=== PATIENT | female | born 1955 | race Caucasian/White ===

== ENCOUNTER → 2020-04-25 15:24 | Outpatient (BNVA) | payer MEDICARE, SELFPAY | PROVIDERS: PCP Family Medicine; Visit Provider Internal Medicine | DX: D86.9 Sarcoidosis, unspecified (principal); M32.9 Systemic lupus erythematosus, unspecified; L40.9 Psoriasis, unspecified; M81.0 Age-related osteoporosis without current pathological fracture; G89.29 Other chronic pain; F41.9 Anxiety disorder, unspecified; K51.90 Ulcerative colitis, unspecified, without complications | CPT/HCPCS: 99203; 99204 ==

== ENCOUNTER 2020-05-09 11:25 | Outpatient (CLI) | payer MEDICARE, OTHER, MEDICAID, SELFPAY ==
--- NOTE | 2020-05-09 11:42 | XR_ITS ---
WS: [id number] TECHNIQUE: 2 views of the right hand CLINICAL INFORMATION: K51.90 - Ulcerative colitis, unspecified, without complications COMPARISON: None. FINDINGS: Normal metacarpals. Normal MCP joint. Metacarpal heads are normal in appearance. Normal PIP and DIP j oints. No evidence of acute fracture or dislocation. Ulna minus variance. Chondrocalcinosis TFCC. Radiocarpal joint: Mild narrowing Carpal bones: Mild degenerative arthritis first CMC. XR/XR hand RT 2V [id number] IMPRESSION: 1. No erosive changes. 2. Ulna minus variance with chondrocalcinosis of the TFCC.
--- NOTE | 2020-05-09 11:42 | XR_ITS ---
WS: [id number] TECHNIQUE: 2 views of the left hand CLINICAL INFORMATION: K51.90 - Ulcerative colitis, unspecified, without complications COMPARISON: None. FINDINGS: Normal metacarpals. Normal MCP joint. Metacarpal heads are normal in appearance. Normal PIP and DIP j oints. No evidence of acute fracture or dislocation. Chondrocalcinosis TFCC. Radiocarpal joint: Mild narrowing. Carpal bones: Mild degenerative arthritis the first CMC. XR/XR hand LT 2V [id number] IMPRESSION: No erosive changes.
--- NOTE | 2020-05-09 11:42 | XR_ITS ---
WS: [id number] SI JOINTS TECHNIQUE: 3 views of the sacroiliac joints CLINICAL INFORMATION: L40.9 - Psoriasis, unspecified COMPARISON: None. FINDINGS: Osteopenia. Mild degenerative arthritis both sacroiliac joints with mild sclerosis. No significant er osive changes. Surgical sutures in the pelvis. 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 No eros rocael changes.
== END 2020-05-09 11:26 | disposition home or self-care (01) ==
LOC: RADWPI 11:41
PROVIDERS: PCP Family Medicine; Visit Provider Internal Medicine
DX: L40.9 Psoriasis, unspecified (principal); K51.90 Ulcerative colitis, unspecified, without complications; M21.831 Other specified acquired deformities of right forearm; M11.241 Other chondrocalcinosis, right hand; M46.1 Sacroiliitis, not elsewhere classified; M54.2 Cervicalgia; M54.9 Dorsalgia, unspecified
CPT/HCPCS: 72202; 73120; 99203; G0463

== ENCOUNTER → 2020-06-13 12:35 | Outpatient (BNVA) | payer MEDICARE, OTHER, MEDICAID, SELFPAY | PROVIDERS: PCP Family Medicine; Visit Provider Internal Medicine | DX: D86.9 Sarcoidosis, unspecified (principal); K51.90 Ulcerative colitis, unspecified, without complications; M53.3 Sacrococcygeal disorders, not elsewhere classified; G89.29 Other chronic pain; Z79.899 Other long term (current) drug therapy | CPT/HCPCS: 99213 ==

== ENCOUNTER 2020-11-26 13:43 | Outpatient (CLI) | payer MEDICARE, OTHER, MEDICAID, SELFPAY ==
[2020-11-26 14:15] LABS: Basophils # 0.1 10^3/uL (0.0-0.1); Basophils % 0.8 %; Eosinophils # 0.1 10^3/uL (0.0-0.8); Eosinophils % 0.6 %; Hemoglobin 10.9 g/dL (11.5-15.3); Lymphocytes # 2.1 10^3/uL (0.8-4.8); Lymphocytes % 11.6 %; Mean Corpuscular HGB Conc 31.1 g/dL (30.0-36.0); Mean Corpuscular Hemoglobin 25.7 pg (28.0-34.0); Mean Corpuscular Volume 82.5 fL (81-99); Monocytes # 0.7 10^3/uL (0.2-0.9); Neutrophils # 14.56 10^3/uL (1.8-7.7); Neutrophils % 81.9 %; Nucleated Red Blood Cells % 0 %; Platelet Count 345 10^3/cmm (130-400); Red Blood Count 4.24 10^6/uL (4.1-5.3); Red Cell Distribution Width 15.9 % (12.1-15.1); White Blood Count 17.8 10^3/uL (4.0-10.0)
[2020-11-26 14:51] LABS: Alanine Aminotransferase 15 U/L (0-33); Albumin Level 3.8 g/dL (3.5-5.2); Alkaline Phosphatase 62 IU/L (35-105); Anion Gap 19.2 (5-19); Aspartate Amino Transferase 21 U/L (0-32); Blood Urea Nitrogen 23 mg/dL (8-23); C Reactive Protein 92.2 mg/L (0.0-4.9); Calcium 8.8 mg/dL (8.5-10.5); Carbon Dioxide 17 mmol/L (22-29); Chloride 103 mmol/L (98-107); Glomerular Filtration Rate 83.5 mL/min (90-130); Glucose 116 mg/dL (65-115); Osmolality Calculated 285 mOsm/kg (285-295); Potassium 4.2 mmol/L (3.5-5.1); Sodium 135 mmol/L (136-145); Total Bilirubin 0.2 mg/dL (0.15-1.2); Total Protein 6.8 g/dL (6.6-8.7)
[2020-11-26 15:20] LABS: Erythrocyte Sedimentation Rate 40 mm/hr (0-15)
== END 2020-11-26 13:44 | disposition home or self-care (01) ==
PROVIDERS: PCP Family Medicine; Visit Provider Internal Medicine
DX: D86.9 Sarcoidosis, unspecified (principal); M81.0 Age-related osteoporosis without current pathological fracture; Z79.899 Other long term (current) drug therapy
CPT/HCPCS: 36415; 80053; 85025; 85651; 86140

== ENCOUNTER 2023-10-16 14:33 | Inpatient (IN) | payer MEDICARE, OTHER, MEDICAID, SELFPAY ==
[2023-10-16] VITALS (9 sets, daily range): BP systolic 105–131; BP diastolic 60–64; PULSE 84–91; RESP 14–17; TEMP 36.3–37.3; O2SAT 86–95; BMI 20.2
--- NOTE | 2023-10-16 14:43 | XR_ITS ---
WS: [id number] XR hip LT 2-3V wo/w pel* [id number] REASON FOR EXAM: fall, left hip pain. with pelvis FINDINGS: Mild changes of osteoarthritis in the left hip joint. No acute fracture of the left hip identified. There is a nondisplaced minimally comminuted fracture of the inferior pubic ramus.. There is nondisplaced minimally comminuted fracture of the superior pubic ramus. These fractures appear acute. XR/XR hip LT 2-3V wo/w pel* [id number] IMPRESSION: Acute fracture of the superior and inferior pubic rami. Acute fracture of the hip not identified.
--- NOTE | 2023-10-16 14:49 | W.ED.FALL ---
HPI - Fall General: Chief Complaint: Fall Stated Complaint: PELVIC FRACTURE Time Seen by Provider: 10/16/23 14:38 History of Present Illness: 67-year-old female who presents to the the emergency room by ambulance from [facility]. She tripped and fell yesterday and was having pain in her left hip. She was sent to the emergency room because an in-house x-ray showed possible pelvic fracture. She did not hit her head. No altered mental status. No focal motor deficits. No chest pain. She says she feels a little bit short of breath but this is not unusual. Review of Systems Narrative: Constitutional symptoms: Negative except as documented in HPI. Skin symptoms: Negative except as documented in HPI. Eye symptoms: Negative except as documented in HPI. ENMT symptoms: Negative except as documented in HPI. Respiratory symptoms: Negative except as documented in HPI. Cardiovascular symptoms: Negative except as documented in HPI. Gastrointestinal symptoms: Negative except as documented in HPI. Genitourinary symptoms: Negative except as documented in HPI. Musculoskeletal symptoms: Negative except as documented in HPI. Neurologic symptoms: Negative except as documented in HPI. Psychiatric symptoms: Negative except as documented in HPI. Endocrine symptoms: Negative except as documented in HPI. [facility] PFSH: Medical History Osteoporosis Sarcoidosis Social History Smoking and tobacco/nicotine status: never used tobacco/nicotine Alcohol intake: never Substance/Drug Use: never Lives independently: Yes Physical Exam Narrative: EXAM NARRATIVE: General: Alert, no acute distress. Skin: Warm, dry. Head: Normocephalic, atraumatic. Neck: Supple, trachea midline. Eye: Extraocular movements are intact. Ears, nose, mouth and throat: mucosa moist. Cardiovascular: Regular, Normal peripheral perfusion. Respiratory: Lungs are clear to auscultation, respirations are non-labored, breath sounds are equal, Symmetrical chest wall expansion. Gastrointestinal: Soft, Nontender, Non distended, Normal bowel sounds. Musculoskeletal: Pain with movement of her left leg in her left pelvic and hip area. No shortening or rotation. Neurovascularly intact. Left shoulder appears to be sitting superior to where it should. She cannot abduct. Neurological: Alert and oriented, No focal neurological deficit observed. Psychiatric: Cooperative, appropriate mood & affect. Course Vital Signs: Vital signs: Vital Signs Temperature 99.1 F 10/16/23 14:35 Pulse Rate 90 10/16/23 19:42 Respiratory Rate 16 10/16/23 19:42 Blood Pressure 131/64 10/16/23 19:42 Pulse Oximetry 92 10/16/23 19:42 Oxygen Delivery Me thod Nasal Cannula 10/16/23 19:42 Oxygen Flow Rate 2 10/16/23 19:42 MDM - Fall Medical Decision Making Medical decision making: Differential diagnosis including but not limited to and based on the above HPI, review of systems and physical exam: Concern for hip or pelvic fracture. X-ray was ordered. Patient reports no head injury so no CTs of her head were ordered. No confusion. No altered mental status. She says she tripped and fell so no workup for syncope or infection. Orders placed to evaluate differential diagnosis based on the above differential, HPI and physical exam X-ray of the left shoulder: Abnormal placement of the shoulder, likely rotator cuff. I reviewed and interpreted these films personally. I also reviewed the radiology report. X-ray of the left hip and pelvis: No hip fracture. She does have a superior and inferior pubic rami fractures. This was reviewed and interpreted by myself the emergency room physician. Also reviewed the radiology report CT head: No acute intracranial process. no intracranial hemorrhage, no evidence of infarct. no evidence of acute fracture.This was reviewed and interpreted by myself the ER physician. Consultation: I spoke with Dr. Still at 1440. He recommends a CT scan of the abdomen. Also at that time it is noted that the patient had an elevated temperature and soft blood pressure so I ordered some fluids and lab work. Including a urinalysis. CT was ordered. Patient does have an additional iliac fracture. I spoke with Dr. Gaston again about shoulder and he recommends toe-touch weightbearing of the left lower extremity, PT OT consultation, 325 aspirin twice daily, pain control, vitamin D and calcium. Also a CT of the left shoulder is being ordered. CT of the pelvis without contrast: Comminuted fractures of the left superior and inferior pubic rami. Comminuted fracture of the left iliac bone extending into the SI joint without SI joint widening. Nonspecific induration around the urinary bladder likely related to pelvic trauma. Consider cystography to exclude low likelihood of bladder injury if there is further clinical concern. Lab review: Patient has some leukocytosis with a white count of 11. BUN and creatinine are 17 and 0.6. Sodium is a little low at 130. I reviewed the patient's medical record. Reexamination: Patient remains fairly stable. Blood pressure still little bit soft. O2 sats have been a little bit soft as well range between 87 and 92. No focal motor deficits. She does not seem confused at this time. Assessment and plan: UTI Fall Pelvic fracture Rotator cuff injury -Morphine, meropenem and IV fluids in the emergency room. -Think she needs good pain control and some IV antibiotics for UTI. She lives in a correction so I am treating her for more broad-spectrum with some meropenem. She is nitrite negative so will cover for gram-positive's with linezolid. -I discussed the patient with the hospitalist on-call who is admitting the patient. - Discussed findings and plan with patient. Answered any questions. - All laboratory values were reviewed and interpreted personally by myself, the ER physician - All imaging was reviewed and interpreted personally by myself, the ER physician. - Evaluation and treatment of this problem were appropriate in the emergency setting Lab Data 10/16/23 18:17 10/16/23 18:17 Radiology Impressions Hip/Pelvis X-Ray 10/16/23 14:43 IMPRESSION: Acute fracture of the superior and inferior pubic rami. Acute fracture of the hip not identified. Shoulder X-Ray 10/16/23 15:29 IMPRESSION: The alignment of the humeral head and glenoid is not appear appropriate. If there has been direct trauma to the left shoulder a posterior dislocation would be considered. The other cause of the appearance would be a complete rotator cuff tear with cephalic migration of the humeral head. A Y view and mediolateral oblique of the glenohumeral joint would be helpful. Pelvis CT 10/16/23 16:39 IMPRESSION: Comminuted fractures of the left superior and inferior pubic rami. Comminuted fracture of the left iliac bone extending into the SI joint without SI joint widening. Nonspecific induration around the urinary bladder likely related to pelvic trauma. Consider cystography to exclude low likelihood of bladder injury if there is further clinical concern. Shoulder CT 10/16/23 19:10 IMPRESSION: 1. Anteriorly subluxed/nearly-dislocated humeral head, of indeterminate acuity. Cephalad translation of the humeral head 2. The shoulder malalignment is likely contributed to by extensive rotator cuff tear. Significant atrophy and fatty replacement of the rotator cuff muscles. Glenohumeral effusion extending to the subacromial subdeltoid bursa. 3. Severe wedge compression fracture of T5, T6 and T7 vertebra , diastatic burst appearance of T6 vertebra, status post vertebroplasty. Correlation with prior imaging would be helpful to assess for stability . 5. Scattered small left lung nodules. Follow-up CT in 1 year recommended according to the Fleischner guidelines. Head CT 10/16/23 19:21 IMPRESSION: No acute intracranial abnormality. Laboratory Results WBC 11.37 10^3/uL (3.29-11.43) 10/16/23 18:17 RBC 3.21 10^6/uL (3.85-5.65) L 10/16/23 18:17 Hgb 9.00 g/dL (11.27-16.99) L 10/16/23 18:17 Hct 29.0 % (36-47) L 10/16/23 18:17 MCV 90.3 fl (85-98) 10/16/23 18:17 MCH 28.0 pg (27-33) 10/16/23 18:17 MCHC 31.0 g/dL (30-55) 10/16/23 18:17 RDW 15.6 % (12.1-15.1) H 10/16/23 18:17 Plt Count 212 10^3/cmm (157-399) 10/16/23 18:17 MPV 8.2 fL (7.4-10.4) 10/16/23 18:17 Neut % (Auto) 69.0 % 10/16/23 18:17 Lymph % (Auto) 16.1 % 10/16/23 18:17 [place] % (Auto) 11.1 % 10/16/23 18:17 Eos % (Auto) 2.8 % 10/16/23 18:17 Baso % (Auto) 0.6 % 10/16/23 18:17 Neut # (Auto) 7.85 10^3/uL (1.8-7.7) H 10/16/23 18:17 Lymph # (Auto) 1.8 10^3/uL (0.8-4.8) 10/16/23 18:17 [place] # (Auto) 1.3 10^3/uL (0.2-0.9) H 10/16/23 18:17 Eos # (Auto) 0.3 10^3/uL (0.0-0.8) 10/16/23 18:17 Baso # (Auto) 0.1 10^3/uL (0.0-0.1) 10/16/23 18:17 Nucleated RBC % (auto) 0 % 10/16/23 18:17 Nucleated RBCs # 0.0 /100WBC 10/16/23 18:17 Sodium 130 mmol/L (136-145) L 10/16/23 18:17 Potassium 4.2 mmol/L (3.5-5.1) 10/16/23 18:17 Chloride 98 mmol/L (98-107) 10/16/23 18:17 Carbon Dioxide 23 mmol/L (22-29) 10/16/23 18:17 Anion Gap 13.2 (5-19) 10/16/23 18:17 BUN 17 mg/dL (8-23) 10/16/23 18:17 Creatinine 0.6 mg/dL (0.5-0.9) 10/16/23 18:17 GFR Calculation 99.1 mL/min (90-130) 10/16/23 18:17 Glucose 100 mg/dL (65-115) 10/16/23 18:17 Calculated Osmolality 272 mOsm/kg (285-295) L 10/16/23 18:17 Calcium 8.2 mg/dL (8.5-10.5) L 10/16/23 18:17 Total Bilirubin 0.3 mg/dL (0.15-1.2) 10/16/23 18:17 AST 31 U/L (0-32) 10/16/23 18:17 ALT 14 U/L (0-33) 10/16/23 18:17 Alkaline Phosphatase 61 U/L (35-105) 10/16/23 18:17 Total Protein 6.8 g/dL (6.6-8.7) 10/16/23 18:17 Albumin 2.8 g/dL (3.5-5.2) L 10/16/23 18:17 Globulin 4.0 g/dL (1.3-4.6) 10/16/23 18:17 Urine Color Yellow (Yellow) 10/16/23 17:50 Urine Appearance Cloudy (CLEAR) A 10/16/23 17:50 Urine pH 9 (5-7) H 10/16/23 17:50 Ur Specific [place] 1.010 (1.005-1.030) 10/16/23 17:50 Urine Protein Neg (Negative) 10/16/23 17:50 Urine Glucose (UA) Norm (Normal) 10/16/23 17:50 Urine Ketones Negative (Negative) 10/16/23 17:50 Urine Blood 2+ (Negative) H 10/16/23 17:50 Urine Nitrate Negative (Negative) 10/16/23 17:50 Urine Bilirubin Neg (Negative) 10/16/23 17:50 Prot Sulfosalicylic Acd Positive (Negative) 10/16/23 17:50 Urine Urobilinogen Neg mg/dL (Negative) 10/16/23 17:50 Ur Leukocyte Esterase 2+ (Negative) H 10/16/23 17:50 Urine RBC 0-4 /hpf (0-2) H 10/16/23 17:50 Urine WBC Too numerous to cnt /hpf (0-5) H 10/16/23 17:50 Ur Squamous Epith Cells 0-4 /hpf (0-5) H 10/16/23 17:50 Amorphous Sediment 1+ /hpf 10/16/23 17:50 Urine Bacteria 3+ /hpf (NONE) H 10/16/23 17:50 Urine Mucus Trace /hpf 10/16/23 17:50 All radiology interpretation(s) finalized by discharge Discharge Plan Discharge Patient Disposition: Admitted As Inpatient Clinical Impression: Closed pelvic fracture, Injury of right rotator cuff, Urinary tract infection Condition: Stable Coding Level of Care Code ED [employer] for William Arzate
--- NOTE | 2023-10-16 15:29 | XR_ITS ---
WS: [id number] XR shoulder LT min 2V* [id number] REASON FOR EXAM: shoulder pain FINDINGS: No fracture or focal bone lesion. The acromioclavicular joint space is intact and well preserved. Minimal marginal subchondral sclerosi s and osteophytosis. No fracture of the humerus or glenoid is identified. The relationship of the humeral head and glenoid does not appear appropriate on both views. No soft tissue abnormality. XR/XR shoulder LT min 2V* [id number] IMPRESSION: The alignment of the humeral head and glenoid is not appear appropriate. If the re has been direct trauma to the left shoulder a posterior dislocation would be considered. The other cause of the appearance would be a complete rotator cuff tear with cephalic migration of the humeral head. A Y view and mediolateral oblique of the glenohumeral joint would be helpful.
--- NOTE | 2023-10-16 15:46 | PC.PHAR ---
PT IS IN [facility]. ALL MEDICATIONS ENTERED FROM [facility] MEDICATION LIST.
--- NOTE | 2023-10-16 16:39 | CTR_ITS ---
PROCEDURE INFORMATION: Exam: CT Pelvis Without Contrast; Skeletal Exam date and time: 10/16/2023 5:34 PM Age: 67 years old Clinical indication: Injury or trauma; Fall; Blunt trauma (contusions or hematomas); Left; Pelvic region; Prior surgery; Surgery date: 6+ months; Surgery type: Colostomy; Additional info: Traumatic pelvic pain TECHNIQUE: Imaging protocol: Computed tomography of the pelvis without contrast. Exam focused on the skeleton. Radiation optimization: All CT scans at this facility use at least one of these dose optimization techniques: automated exposure control; mA and/or kV adjustment per patient size (includes targeted exams where dose is matched to clinical indication); or iterative reconstruction. COMPARISON: CR XR hip LT 2-3V wo/w pel* [id number] 10/16/2023 3:18 PM RADIATION DOSE METRICS: Total DLP (mGy-cm): 267.12 FINDINGS: Bones/joints: Comminuted fractures of the left superior and inferior pubic rami. Comminuted fracture of the left iliac coronal image 56 extending into the SI joint, no asymmetric SI joint widening. No diastasis of the pubic symphysis. No acetabular, femoral or right-sided fractures. Soft tissues: Nonspecific stranding around the urinary bladder example axial image 56. Lower abdominal ostomy noted. CT/CT pelvis wo con [id number] IMPRESSION: Comminuted fractures of the left superior and inferior pubic rami. Comminuted fracture of the left iliac bone extending into the SI joint without SI joint widening. Nonspecific induration around the urinary bladder likely related to pelvic trauma. Consider cystography to exclude low likelihood of bladder injury if there is further clinical concern.
[2023-10-16 18:14] LABS: Bilirubin Urine Neg (Negative); Blood Urine 2+ (Negative); Glucose Urine UA Norm (Normal); Ketones Urine Negative (Negative); Leukocyte Esterase Urine 2+ (Negative); Nitrate Urine Negative (Negative); Protein Urine Neg (Negative); Sulfosalicylic Acid Urine Positive (Negative); Urine Appearance Cloudy (CLEAR); Urine Color Yellow (Yellow); Urobilinogen Urine Neg (Negative); pH Urine 9 (5-7)
[2023-10-16 18:16] LABS: Bacteria Urine 3+ /hpf; RBC Urine 0-4 /hpf (0-2); Squamous Epithelial Cell Urine 0-4 /hpf (0-5); WBC Urine TOO NUMEROUS TO CNT /hpf (0-5)
[2023-10-16 18:17] LABS: Add Urine Culture? Yes; Amorphous Sediment Urine 1+ /hpf; Mucus Urine TRACE /hpf
[2023-10-16 18:23] LABS: Basophils # 0.1 10^3/uL (0.0-0.1); Basophils % 0.6 %; Eosinophils # 0.3 10^3/uL (0.0-0.8); Eosinophils % 2.8 %; Lymphocytes # 1.8 10^3/uL (0.8-4.8); Lymphocytes % 16.1 %; Mean Corpuscular Volume 90.3 fl (85-98); Mean Platelet Volume 8.2 fL (7.4-10.4); Monocytes # 1.3 10^3/uL (0.2-0.9); Monocytes % 11.1 %; Neutrophils # 7.85 10^3/uL (1.8-7.7); Nucleated Red Blood Cells % 0 %; Platelet Count 212 10^3/cmm (157-399); Red Blood Count 3.21 10^6/uL (3.85-5.65); Red Cell Distribution Width 15.6 % (12.1-15.1); White Blood Count 11.37 10^3/uL (3.29-11.43)
[2023-10-16 18:40] LABS: Alanine Aminotransferase 14 U/L (0-33); Albumin Level 2.8 g/dL (3.5-5.2); Alkaline Phosphatase 61 U/L (35-105); Anion Gap 13.2 (5-19); Aspartate Amino Transferase 31 U/L (0-32); Blood Urea Nitrogen 17 mg/dL (8-23); Calcium 8.2 mg/dL (8.5-10.5); Carbon Dioxide 23 mmol/L (22-29); Chloride 98 mmol/L (98-107); Creatinine Clr Calc Pharmacy 60.4707; Glomerular Filtration Rate 99.1 mL/min (90-130); Glucose 100 mg/dL (65-115); Osmolality Calculated 272 mOsm/kg (285-295); Potassium 4.2 mmol/L (3.5-5.1); Sodium 130 mmol/L (136-145); Total Bilirubin 0.3 mg/dL (0.15-1.2); Total Protein 6.8 g/dL (6.6-8.7)
[2023-10-16] MEDS: sodium chloride 0.9% 1,000 ML 999 ML IV (19:00)
[2023-10-16] MEDS: meropenem 500 MG in sodium chloride 0.9% (plus) 50 ML 100 MG IV (19:00)
[2023-10-16] MEDS: ondansetron 2 mg/ML SDV 2 mL 8 MG IVP (19:05)
[2023-10-16] MEDS: morphine 4 mg/mL SDV 1 mL IVP (19:05)
--- NOTE | 2023-10-16 19:10 | CTR_ITS ---
PROCEDURE INFORMATION: Exam: CT Left Upper Extremity Without Contrast, Shoulder Exam date and time: 10/16/2023 7:16 PM Age: 67 years old Clinical indication: Injury or trauma; Fall; Other: Pain; Additional info: Abnormal x-ray TECHNIQUE: Imaging protocol: Computed tomography of the left upper extremity without contrast. Exam focused on the shoulder. Radiation optimization: All CT scans at this facility use at least one of these dose optimization techniques: automated exposure control; mA and/or kV adjustment per patient size (includes targeted exams where dose is matched to clinical indication); or iterative reconstruction. COMPARISON: CR XR shoulder LT min 2V* [id number] 10/16/2023 3:30 PM RADIATION DOSE METRICS: Total DLP (mGy-cm): 191.5 FINDINGS: Bones/joints: Moderate multilevel endplate osteophytosis and uncovertebral spurring in the visualized lower cervical spine. Features of prior augmentation and severe comminuted fracture deformity of T5 , T6 and T7 vertebra with burst appearance of the T6 vertebral, not fully assessed in the field of view. Remote fracture of the posterolateral left 7th rib. Small remote ossicle in the posterior margin of the glenoid. Anteriorly subluxed, nearly-dislocated left humeral head maintaining partial contact with the anterior glenoid. Mild impaction deformity of the posterior aspect of the humeral head. Moderate glenohumeral arthrosis with articular sclerosis and marginal spurring. Moderate glenohumeral effusion and subacromial subdeltoid bursal fluid accumulation. Soft tissues: Moderate atrophy and fatty replacement of the supraspinatus and subscapularis and to a lesser extent in the infraspinatus likely due to extensive rotator cuff tear. Vasculature: Significantly enlarged main pulmonary artery/pulmonary arterial hypertension. Lungs: Mild emphysema, [id number] cylindrical bronchiectasis and peripheral reticular interstitial opacities are present in the visualized lungs especially in the upper lobes. 3 mm nodule in the superior segment left lower lobe (series 3, image 52). Patchy peribronchial ground-glass opacity in the left lower lobe (image 77). 4 mm left upper lobe nodule (image 40). CT/CT shoulder LT wo con* [id number] IMPRESSION: 1. Anteriorly subluxed/nearly-dislocated humeral head, of indeterminate acuity. Cephalad translation of the humeral head 2. The shoulder malalignment is likely contributed to by extensive rotator cuff tear. Significant atrophy and fatty replacement of the rotator cuff muscles. Glenohumeral effusion extending to the subacromial subdeltoid bursa. 3. Severe wedge compression fracture of T5, T6 and T7 vertebra , diastatic burst appearance of T6 vertebra, status post vertebroplasty. Correlation with prior imaging would be helpful to assess for stability . 5. Scattered small left lung nodules. Follow-up CT in 1 year recommended according to the Fleischner guidelines.
--- NOTE | 2023-10-16 19:21 | CTR_ITS ---
PROCEDURE INFORMATION: Exam: CT Head Without Contrast Exam date and time: 10/16/2023 7:29 PM Age: 67 years old Clinical indication: Injury or trauma; Fall; Other: Pain; Additional info: Fall, head injury TECHNIQUE: Imaging protocol: Computed tomography of the head without contrast. Radiation optimization: All CT scans at this facility use at least one of these dose optimization techniques: automated exposure control; mA and/or kV adjustment per patient size (includes targeted exams where dose is matched to clinical indication); or iterative reconstruction. COMPARISON: No relevant prior studies available. RADIATION DOSE METRICS: Total DLP (mGy-cm): 1063.3 FINDINGS: Brain: No hemorrhage. Chronic white matter and senescent changes. Cerebral ventricles: No ventriculomegaly. Paranasal sinuses: Visualized sinuses are grossly clear with minimal mucosal thickening and/or retention cyst formation. Mastoid air cells: No mastoid effusion. Bones: Unremarkable. No acute fracture. Soft tissues: No acute findings. CT/CT head wo con* [id number] IMPRESSION: No acute intracranial abnormality.
--- NOTE | 2023-10-16 19:21 | PC.NURSE ---
pt meds delayed due to needing an US IV.
--- NOTE | 2023-10-16 19:24 | XRR_ITS ---
PROCEDURE INFORMATION: Exam: XR Chest Exam date and time: 10/16/2023 7:44 PM Age: 67 years old Clinical indication: Patient HX: Fever; HX mohs TECHNIQUE: Imaging protocol: Radiologic exam of the chest. Views: 1 view. COMPARISON: CT shoulder LT wo con* [id number] 10/16/2023 7:16 PM FINDINGS: Lungs: There is diffuse reticular opacity throughout both lungs with an upper lung preponderance. Pleural spaces: No pleural effusion. No pneumothorax. Heart/Mediastinum: Cardiac silhouette is normal in size for technique. Bones/joints: Subjective bony demineralization. Vertebroplasty cement noted in the midthoracic spine. XR/XR chest 1V portable [id number] IMPRESSION: Reticular opacities throughout both lungs could reflect pneumonitis or interstitial lung disease. Distribution is atypical for edema but noncardiogenic pulmonary edema is in the differential.
[2023-10-16] MEDS: linezolid premix 600 MG/300 ML PREMIX 300 MG IV (19:52)
--- NOTE | 2023-10-16 20:50 | PM.HP ---
Providers/Chief Complaint Admitting Physician: Virgilio Pierre MD Primary Care Provider: Tai Cooper MD Chief Complaint: PELVIC FRACTURE History of Present Illness Daniel Morales is a 67 year old female presenting from [facility] with history of a fall 1 to 2 days ago from understanding. She has some difficulty relating the events, as she is to receive some pain medicine but believes she fell on the way to her the dining conrad. I did call the nursing facility and she has not recently been ill. They report no obvious loss of consciousness with the fall. She was complaining of some shoulder pain and hip pain and they obtained some x-rays demonstrating a pelvic fracture and possible shoulder dislocation. She was sent to the emergency department for this. She reports no recent fever. She has been treated for a gum abscess with clindamycin in the last several days. Currently reports she still has some shoulder and left pelvis/hip discomfort. Denies any chest pain. Reports no headache or neck pain. She does use oxygen intermittently at the nursing facility for COPD. Review of Systems General: Reports: 10 or more systems reviewed and unremarkable except in HPI and below Card: Denies: chest pain Resp: Denies: dyspnea GI: Denies: abdominal pain, nausea or vomiting Medications/Allergies Home Medications Medication Instructions Recorded Confirmed Last Taken Type buspirone 10 mg tablet 10 mg PO TID 04/25/20 10/16/23 10/16/23 History gabapentin 300 mg capsule 300 mg PO TID 04/25/20 10/16/23 10/16/23 History mesalamine 400 mg capsule (with 400 mg PO TID 04/25/20 10/16/23 10/16/23 History delayed release tablets inside) omeprazole 40 mg capsule,delayed 40 mg PO DAILY 04/25/20 10/16/23 10/16/23 History release polyethylene glycol 3350 17 17 g PO DAILY 04/25/20 10/16/23 10/16/23 History gram/dose oral powder (Miralax) potassium chloride 20 mEq 20 meq PO BID 04/25/20 10/16/23 10/16/23 History tablet,extended release Juice Festiv 2 cap PO DAILY 10/16/23 10/16/23 10/16/23 History Juicefestiv 2 cap PO DAILY 10/16/23 10/16/23 10/16/23 History acetaminophen 325 mg tablet 650 mg PO Q4H PRN Pain 10/16/23 10/16/23 10/16/23 History amiodarone 200 mg tablet 400 mg PO DAILY 10/16/23 10/16/23 10/16/23 History clindamycin HCl 300 mg capsule 300 mg PO TID 10/16/23 10/16/23 10/16/23 History cyclobenzaprine 10 mg tablet 10 mg PO TID 10/16/23 10/16/23 10/16/23 History dextromethorphan-guaifenesin 10 10 - 20 ml PO Q4H PRN Cough 10/16/23 10/16/23 10/12/23 History mg-100 mg/5 mL oral liquid (Tussin DM) ferrous sulfate 325 mg (65 mg 325 mg PO BID 10/16/23 10/16/23 10/16/23 History iron) tablet fluoxetine 40 mg capsule 40 mg PO DAILY 10/16/23 10/16/23 10/16/23 History fluticasone 250 mcg-salmeterol 50 1 inh inhalation BID 10/16/23 10/16/23 10/16/23 History mcg/dose blistr powdr for inhalation (Wixela Inhub) furosemide 20 mg tablet 20 mg PO DAILY 10/16/23 10/16/23 10/16/23 History glucagon 3 mg/actuation nasal See Rx Instructions .Route .COMPLEX 10/16/23 10/16/23 Unknown History spray (Baqsimi) levalbuterol tartrate 45 1 - 2 puff inhalation Q4H PRN 10/16/23 10/16/23 Unknown History mcg/actuation aerosol inhaler Shortness Of Breath (Xopenex HFA) levothyroxine 50 mcg tablet 50 mcg PO DAILY 10/16/23 10/16/23 10/16/23 History mesalamine 4 gram/60 mL enema 4 g MN BEDTIME 10/16/23 10/16/23 10/15/23 History mirtazapine 15 mg tablet 15 - 30 mg PO BEDTIME 10/16/23 10/16/23 10/15/23 History multivitamin 1 tab PO QAM 10/16/23 10/16/23 10/16/23 History Allergies Allergy/AdvReac Type Severity Reaction Status Date / Time Penicillins Allergy Intermediate ALGY-Rash Verified 06/13/20 12:56 PFSH Acute PFSH: Medical History (Updated 10/16/23 @ 21:05 by Virgilio Pierre MD) COPD (chronic obstructive pulmonary disease) Atrial fibrillation Coronary artery disease Thyroid disease HTN (hypertension) Anemia Colostomy in place Depression Type 2 diabetes mellitus without complication Ulcerative colitis Osteoporosis Sarcoidosis Surgical History Hx of hand surgery Hx of appendectomy Hx of hysterectomy Social History Smoking and tobacco/nicotine status: never used tobacco/nicotine Alcohol intake: never Substance/Drug Use: never Lives independently: Yes Vitals/I&O/Wt Last Vital Signs Temp 99.1 F 10/16/23 14:35 Pulse 90 10/16/23 19:42 Resp 16 10/16/23 19:42 BP 131/64 10/16/23 19:42 Pulse Ox 92 10/16/23 19:42 O2 Del Method Nasal Cannula 10/16/23 19:42 O2 Flow Rate 2 10/16/23 19:42 10/16/23 10/16/23 10/16/23 06:59 14:59 22:59 Intake Total 50 / 50 Balance 50 / 50 Weight last 48 hrs Weight 55.338 kg Physical Exam Narrative: General exam demonstrates white female, who answers questions fairly well but has occasional confusion. HEENT: Cataract lens surgery is noted. Oropharynx demonstrates some inflammation of the gum on her right upper area of her mouth. This does not seem to extend into the cheek causing any edema. Neck is supple no lymphadenopathy thyromegaly Cardiovascular regular rate and rhythm, no murmur Lungs clear no wheezing or crackles Abdomen is soft. Positive bowel sounds. Ostomy is noted Extremities no cyanosis clubbing. Trace edema is present bilaterally. Left shoulder may be anterior dislocated. Distal pulses intact. Pain with movement of the left leg. Skin no rash Neuro no obvious focal deficits Data 10/16/23 18:17 10/16/23 18:17 Other Labs: LFTs normal Albumin 2.8, calcium 8.2 Urinalysis with too numerous to count white blood cells, 0-[address] which I reviewed no obvious bleed Shoulder CT demonstrates some small lung nodules, compression fracture T5, 6, 7 with a burst fracture of T6 status post vertebroplasty Shoulder malalignment likely secondary to rotator cuff tear Anterior subluxation/dislocation humeral head Pelvis CT with some induration around the urinary bladder, comminuted fracture of the left iliac bone extending into the SI joint and comminuted fractures of the left superior and inferior pubic rami Chest x-ray demonstrates some bilateral reticular opacities most likely edema, cardiomegaly. X-ray of hip which I reviewed demonstrates no obvious fracture I ordered a lactic acid and a blood culture. A&P Assessment and plan (1) Closed pelvic fracture: Patient presents with a mechanical fall with a closed pelvic fracture PT and OT consult Ortho consult Pain control with hydrocodone, morphine for breakthrough pain, Tylenol Place Gonzalez I suspect she can be up as tolerated but will allow Ortho to see her to determine this prior to PT getting her out. Bedrest for now. (2) Dislocation of left shoulder joint: See above (3) Fall: No history of syncope. Go ahead and place on telemetry. Fall precautions. (4) Acute CHF: I am concerned she may have some CHF. She has a reticular pattern on her x-ray. Her sodium is low. This could also be explained by her history of sarcoid. Check echocardiogram. Lasix 40 mg IV x 1. Reassess in the morning. She is requiring a little bit of oxygen. This may be secondary to the narcotic she received, or mild acute CHF, unknown type (5) Urinary tract infection: Patient has significant urinary tract infection. She received meropenem in the emergency department. As she is in a nursing facility setting, and likely at high risk for ESBL we will continue this currently. (6) Hyponatremia: See notations under acute CHF (7) Gum abscess: Patient with a gum abscess right upper gum. Meropenem should cover this. Will need to eventually see dentist as an outpatient. (8) Anemia: Patient with anemia that appears chronic. This may be anemia of chronic disease. Will go ahead and do iron studies, B12, folate Plan Other medical problems as outlined in her past medical history Allow natural per nursing facility records Heparin for DVT prophylaxis Protonix for GI prophylaxis Attestations Medical Necessity Statement*: Will require greater than 2 midnight stay for evaluation and treatment of pelvic fracture, shoulder dislocation Diagnoses Closed pelvic fracture S32.9XXA Dislocation of left shoulder joint S43.005A Fall W19.XXXA Acute CHF I50.9 Urinary tract infection N39.0 Hyponatremia E87.1 Gum abscess K05.219 Anemia D64.9 Time Spent (min) 64
[2023-10-16 21:01] LABS: Lactic Sepsis W/Reflex 1.2 mmol/L (0.5-2.2)
[2023-10-16 21:45] LABS: Thyroid Stimulating Hormone 2.99 uIU/mL (0.27-4.20)
[2023-10-16] MEDS: BuSPIRONE 10 mg Tablet PO (23:11)
[2023-10-16] MEDS: gabapentin 300 mg Capsule PO (23:11)
[2023-10-16] MEDS: FUROsemide 10 mg/mL SDV 4mL 40 MG IVP (23:15)
[2023-10-17] VITALS (13 sets, daily range): BP systolic 95–120; BP diastolic 48–63; PULSE 84–95; RESP 18–19; TEMP 36.5–37.1; O2SAT 90–94
[2023-10-17] MEDS: HYDROcodone-acetaminophen 5-325 mg Tablet 1 TAB PO ×4 (00:27→21:33)
[2023-10-17 00:40] LABS: Ferritin 234 ng/mL (15-150); Iron 11 ug/dL (37-145); Percent Saturation 6.4 % (20-50); Total Iron Binding Capacity 171 mcg/dl; Unsaturated Iron Binding 160 ug/dL (112-347)
[2023-10-17 00:55] LABS: Vitamin B12 1217 pg/mL (232-1245)
[2023-10-17 01:59] LABS: Folate Level > 20.0 ng/mL (4.8-37.3)
[2023-10-17] MEDS: ipratropium-albuterol 3 mL Neb INHALATION ×2 (02:09→10:00)
[2023-10-17] MEDS: meropenem 1,000 MG in sodium chloride 0.9% (plus) 50 ML 100 MG IV ×3 (02:55→17:22)
[2023-10-17 05:56] LABS: Basophils # 0.1 10^3/uL (0.0-0.1); Basophils % 0.7 %; Eosinophils # 0.5 10^3/uL (0.0-0.8); Eosinophils % 3.6 %; Hematocrit 28.1 % (36-47); Lymphocytes # 1.8 10^3/uL (0.8-4.8); Lymphocytes % 13.7 %; Mean Corpuscular HGB Conc 31.3 g/dL (30-55); Mean Corpuscular Hemoglobin 28.1 pg (27-33); Mean Corpuscular Volume 89.8 fl (85-98); Mean Platelet Volume 8.5 fL (7.4-10.4); Monocytes # 1.3 10^3/uL (0.2-0.9); Neutrophils # 9.25 10^3/uL (1.8-7.7); Neutrophils % 71.5 %; Nucleated Red Blood Cells % 0 %; Platelet Count 224 10^3/cmm (157-399); Red Blood Count 3.13 10^6/uL (3.85-5.65); Red Cell Distribution Width 15.6 % (12.1-15.1); White Blood Count 12.94 10^3/uL (3.29-11.43)
--- NOTE | 2023-10-17 06:00 | USCV_ITS ---
Daniel Morales Age: 67 Gender: F : 1955 Exam Date: 10/17/2023 13:12 Ordering Phys: Virgilio Pierre MD Technologist: Asif Freire Exam Location: [facility] Indication: chf BP: 109 / 62 HR: 88 Rhythm: Sinus Technical Quality: Adequate MEASUREMENTS (Male / Female) Normal Values 2D ECHO LV Diastolic Diameter PLAX 4.5 cm 4.2 - 5.9 / 3.9 - 5.3 cm IVS Diastolic Thickness 0.9 cm 0.6 - 1.0 / 0.6 - 0.9 cm IVS Systolic Thickness 1.7 cm LVPW Diastolic Thickness 0.9 cm 0.6 - 1.0 / 0.6 - 0.9 cm LVPW Systolic Thickness 1.5 cm LVOT Diameter 2.0 cm LV Ejection Fraction 2D Teich 62.3 % LV Ejection Fraction MOD 2C 61.2 % LV Ejection Fraction 2C AL 63.4 % LA Diameter 3.1 cm RA Systolic Volume 4C AL 33.7 ml RA Systolic Volume 4C MOD 34.4 ml LA Sys Volume AL 58.0 cm cubed LA Sys Volume Index AL 34.7 cm cubed/m squared Aorta at Sinotubular Diameter 2.4 cm IVC Diameter 2.0 cm M-MODE LA Ao Ratio MM 0.9 MV E Point Septal Separation 1.1 cm AV Cusp Separation MM 2.0 cm DOPPLER AV Peak Velocity 178.0 cm/s LVOT Peak Velocity 114.0 cm/s AV Area Cont Eq vti 2.3 cm squared AV Area Cont Eq pk 2.1 cm squared MV Peak Velocity 107.0 cm/s MV Area PHT 3.2 cm squared Mitral E to A Ratio 0.8 TV Peak Velocity 342.3 cm/s TR Peak Velocity 427.0 cm/s TR Peak Gradient 72.9 mmHg TR Mean Velocity 324.0 cm/s TR Mean Gradient 46.9 mmHg TR Velocity Time Integral 101.6 cm PV Peak Velocity 109.0 cm/s RV Ejection Time 0.3 s FINDINGS Left Ventricle Left renal normal in size. LV systolic function is normal with EF of 60 to 65%. No regional wall motion abnormalities are seen. Grade 1 diastolic dysfunction Right Ventricle Normal in size and function Right Atrium Normal in size Left Atrium Dilated Mitral Valve Mild mitral annular calcification. Trace mitral regurgitation. Aortic Valve Aortic valve is thickened. No significant stenosis or regurgitation Tricuspid Valve Mild tricuspid regurgitation. Insufficient TR jet to calculate RVSP Pulmonic Valve Mild pulmonic regurgitation. Pericardium Normal Aorta Normal in size IVC Appears to be normal CONCLUSIONS LV systolic function is normal with EF of 60-65% Grade 1 diastolic dysfunction Left atrial dilation Trace mitral regurgitation Mild tricuspid regurgitation Mild pulmonic regurgitation No comparison studies are available. Hermann Rockwell MD (Electronically Signed) Final Date: 18 Oct 2023 11:42 S
[2023-10-17 06:11] LABS: Alanine Aminotransferase 14 U/L (0-33); Albumin Level 2.7 g/dL (3.5-5.2); Alkaline Phosphatase 58 U/L (35-105); Aspartate Amino Transferase 33 U/L (0-32); Blood Urea Nitrogen 15 mg/dL (8-23); Calcium 8.2 mg/dL (8.5-10.5); Carbon Dioxide 23 mmol/L (22-29); Chloride 94 mmol/L (98-107); Glomerular Filtration Rate 99.1 mL/min (90-130); Glucose 84 mg/dL (65-115); Magnesium 1.4 mg/dL (1.7-2.3); Osmolality Calculated 266 mOsm/kg (285-295); Sodium 128 mmol/L (136-145); Total Bilirubin 0.3 mg/dL (0.15-1.2); Total Protein 6.7 g/dL (6.6-8.7)
[2023-10-17 06:12] LABS: Anion Gap 14.8 (5-19); Potassium 3.8 mmol/L (3.5-5.1)
[2023-10-17] MEDS: amiodarone 200 mg Tablet 400 MG PO (08:28)
[2023-10-17] MEDS: heparin 5,000 unit/mL INJ 1 mL 5000 UNIT SUBCUT (08:28)
[2023-10-17] MEDS: levothyroxine 50 mcg Tablet PO (08:28)
[2023-10-17] MEDS: gabapentin 300 mg Capsule PO ×3 (08:29→21:32)
[2023-10-17] MEDS: pantoprazole DR 40 mg Tablet PO (08:29)
[2023-10-17] MEDS: fluoxetine 20 mg Capsule 40 MG PO (08:29)
[2023-10-17] MEDS: docusate sodium 100 mg Capsule PO ×2 (08:29→17:23)
[2023-10-17] MEDS: BuSPIRONE 10 mg Tablet PO ×3 (08:29→21:32)
[2023-10-17] MEDS: budesonide 0.5 mg/2 mL Neb INHALATION (10:00)
--- NOTE | 2023-10-17 11:58 | P.CONIM_ITS ---
Documented by User: CHARMAINE Shanks 10/17/23 12:17 Providers/Reason For Consult 2 Consulting Physician/Specialty*: Dr. Still DO/orthopedic surgeon Reason for Consult*: Pelvic fracture Attending Physician: Joyce Metcalf MD Primary Care Provider: Tai Cooper MD History of Present Illness History of Present Illness Daniel Morales is a 67 year old female that was brought into the emergency department yesterday after having a fall. Patient says she tripped over a chair in her dining room causing fall. She injured her left hip and left shoulder. Patient says she has some chronic pain and limited ROM with her left shoulder but since fall its gotten a lot worse. Imaging done in the emergency department showed the patient fracture left pubic rami, left iliac bone fracture and abnormal positioning of humeral head and left shoulder which could be due to rotator cuff arthropathy. Patient says at baseline she uses a walker and has 2 L of oxygen as needed at home. She lives at home alone, but does have a family member that comes over and helps her out. Denies being on any blood thinners. Review of Systems 2 General: Reports: 10 or more systems reviewed and unremarkable except in HPI and below Card: Denies: chest pain Resp: Reports: dyspnea (chronic) GI: Denies: abdominal pain, nausea or vomiting Musc: Reports: extremity pain (left shoulder), joint pain (left hip/pelvis) and limited range of motion (left leg) Medications/Allergies Home Medications Medication Instructions Recorded Confirmed Last Taken Type buspirone 10 mg tablet 10 mg PO TID 04/25/20 10/16/23 10/16/23 History gabapentin 300 mg capsule 300 mg PO TID 04/25/20 10/16/23 10/16/23 History mesalamine 400 mg capsule (with 400 mg PO TID 04/25/20 10/16/23 10/16/23 History delayed release tablets inside) omeprazole 40 mg capsule,delayed 40 mg PO DAILY 04/25/20 10/16/23 10/16/23 History release polyethylene glycol 3350 17 17 g PO DAILY 04/25/20 10/16/23 10/16/23 History gram/dose oral powder (Miralax) potassium chloride 20 mEq 20 meq PO BID 04/25/20 10/16/23 10/16/23 History tablet,extended release Juice Festiv 2 cap PO DAILY 10/16/23 10/16/23 10/16/23 History Juicefestiv 2 cap PO DAILY 10/16/23 10/16/23 10/16/23 History acetaminophen 325 mg tablet 650 mg PO Q4H PRN Pain 10/16/23 10/16/23 10/16/23 History amiodarone 200 mg tablet 400 mg PO DAILY 10/16/23 10/16/23 10/16/23 History clindamycin HCl 300 mg capsule 300 mg PO TID 10/16/23 10/16/23 10/16/23 History cyclobenzaprine 10 mg tablet 10 mg PO TID 10/16/23 10/16/23 10/16/23 History dextromethorphan-guaifenesin 10 10 - 20 ml PO Q4H PRN Cough 10/16/23 10/16/23 10/12/23 History mg-100 mg/5 mL oral liquid (Tussin DM) ferrous sulfate 325 mg (65 mg 325 mg PO BID 10/16/23 10/16/23 10/16/23 History iron) tablet fluoxetine 40 mg capsule 40 mg PO DAILY 10/16/23 10/16/23 10/16/23 History fluticasone 250 mcg-salmeterol 50 1 inh inhalation BID 10/16/23 10/16/23 10/16/23 History mcg/dose blistr powdr for inhalation (Wixela Inhub) furosemide 20 mg tablet 20 mg PO DAILY 10/16/23 10/16/23 10/16/23 History glucagon 3 mg/actuation nasal See Rx Instructions .Route .COMPLEX 10/16/23 10/16/23 Unknown History spray (Baqsimi) levalbuterol tartrate 45 1 - 2 puff inhalation Q4H PRN 10/16/23 10/16/23 Unknown History mcg/actuation aerosol inhaler Shortness Of Breath (Xopenex HFA) levothyroxine 50 mcg tablet 50 mcg PO DAILY 10/16/23 10/16/23 10/16/23 History mesalamine 4 gram/60 mL enema 4 g CA BEDTIME 10/16/23 10/16/23 10/15/23 History mirtazapine 15 mg tablet 15 - 30 mg PO BEDTIME 10/16/23 10/16/23 10/15/23 History multivitamin 1 tab PO QAM 10/16/23 10/16/23 10/16/23 History Allergies Allergy/AdvReac Type Severity Reaction Status Date / Time Penicillins Allergy Intermediate ALGY-Rash Verified 06/13/20 12:56 Current Medications Generic Name Dose Route Start Last Admin Trade Name Freq PRN Reason Stop Dose Admin Hydrocodone Bitart/Acetaminophen 1 tab 10/16/23 21:08 10/17/23 09:50 Hydrocodone-Acetaminophen 5-325 Mg Tablet PO 1 tab Q4H PRN Administration MODERATE TO SEVERE PAIN Albuterol/Ipratropium 3 ml 10/17/23 02:00 10/17/23 10:00 Ipratropium-Albuterol 3 Ml Neb INHALATION 3 ml Q6H.RESP ZAY Administration Amiodarone HCl 400 mg 10/17/23 09:00 10/17/23 08:28 Amiodarone 200 Mg Tablet PO 400 mg DAILY ZAY Administration Budesonide 0.5 mg 10/17/23 08:00 10/17/23 10:00 Budesonide 0.5 Mg/2 Ml Neb INHALATION 0.5 mg BID.RESPIRATORY ZAY Administration Buspirone HCl 10 mg 10/16/23 21:08 10/17/23 08:29 Buspirone 10 Mg Tablet PO 10 mg TID ZAY Administration Docusate Sodium 100 mg 10/17/23 09:00 10/17/23 08:29 Docusate Sodium 100 Mg Capsule PO 100 mg BID ZAY Administration Fluoxetine HCl 40 mg 10/17/23 09:00 10/17/23 08:29 Fluoxetine 20 Mg Capsule PO 40 mg DAILY ZAY Administration Gabapentin 300 mg 10/16/23 21:08 10/17/23 08:29 Gabapentin 300 Mg Capsule PO 300 mg TID ZAY Administration Heparin Sodium (Porcine) 5,000 unit 10/16/23 21:08 10/17/23 08:28 Heparin 5,000 Unit/Ml Inj 1 Ml SUBCUT 5,000 unit Q12H ZAY Administration Meropenem 1,000 mg/ Sodium 50 mls @ 100 mls/hr 10/17/23 02:00 10/17/23 11:28 Chloride IV Infused Q8H ZAY Infusion Protocol Levothyroxine Sodium 50 mcg 10/17/23 09:00 10/17/23 08:28 Levothyroxine 50 Mcg Tablet PO 50 mcg DAILY ZAY Administration Non-Formulary Medication 4 gm 10/16/23 21:08 10/16/23 23:11 Mesalamine CA Not Given BEDTIME ZAY Non-Formulary Medication 400 mg 10/16/23 21:08 10/17/23 08:39 Mesalamine PO Not Given TID ZAY Pantoprazole Sodium 40 mg 10/17/23 09:00 10/17/23 08:[address] 40 Mg Tablet PO 40 mg DAILY ZAY Administration PFSH Acute 2 PFSH: Medical History (Updated 10/19/23 @ 07:25 by Leroy Still DO) COPD (chronic obstructive pulmonary disease) Atrial fibrillation Coronary artery disease Thyroid disease HTN (hypertension) Anemia Colostomy in place Depression Type 2 diabetes mellitus without complication Ulcerative colitis Osteoporosis Sarcoidosis Surgical History Hx of hand surgery Hx of appendectomy Hx of hysterectomy Social History Smoking and tobacco/nicotine status: never used tobacco/nicotine Alcohol intake: never Substance/Drug Use: never Lives independently: Yes Vitals/I&O/Wt Last Vital Signs Temp 98.1 F 10/17/23 11:30 Pulse 91 10/17/23 11:30 Resp 18 10/17/23 11:30 BP 95/48 10/17/23 11:30 Pulse Ox 90 10/17/23 11:30 O2 Del Method Nasal Cannula 10/17/23 10:00 O2 Flow Rate 3 10/17/23 10:07 10/16/23 10/17/23 10/17/23 22:59 06:59 14:59 Intake Total 1350 / 1350 50 / 1400 290 / 290 Output Total 1500 / 1500 Balance 1350 / 1350 -1450 / -100 290 / 290 Weight last 48 hrs Weight 132 lb 1.6 oz Weight 125 lb 3.2 oz Weight 122 lb Physical Exam 2 Const: COMMON NORMALS: no acute distress and alert Resp: COMMON NORMALS: normal respiratory effort and No retractions Cardio: COMMON NORMALS: Peripheral pulses 2+ throughout PERIPHERAL PULSES: Peripheral pulses 2+ throughout Extremity: NARRATIVE EXTREMITY EXAM: Left shoulder?no wound, ecchymosis or abrasion seen. Prominent humeral head. tenderness over humeral head. Limited active range of motion of shoulder to about 0 to 45 degrees. radial pulse 2+. Left hip/leg-all pelvic tenderness. No obvious deformity noted. SI joint tenderness. Positive logroll test. Patient unable to perform straight leg raise due to pain. She can dorsiflex and plantarflex foot. Pedal pulse 2+ and she can wiggle her toes and toes are warm and well-perfused Secondary assessment of other extremities -Right arm normal range of motion with n o pain. No visible deformities or abrasions seen. -Right leg- no visible deformity seen. Pedal pulse 2+. Patient can wiggle toes and they are warm and well-perfused. She can perform straight leg raising and plantarflex and dorsiflex foot without any pain or difficulty Neuro: SENSORIUM/ORIENTATION: Yes alert Skin: GENERAL SKIN EXAM: dry skin Urinary Catheter Management: Gonzalez: Cath Placed During This Visit: yes Reason for Continuing Indwelling Catheter: Other Urinary Catheter Date of Insertion: 10/16/23 Urinary Catheter Time of Insertion: 23:00 Data 10/18/23 06:53 10/18/23 06:53 Micro: Microbiology 10/17/23 05:02 Blood Culture - Preliminary Blood SPECIMEN COLLECTED 10/17/23 04:52 Blood Culture - Preliminary Blood SPECIMEN COLLECTED Other CT: Radiologist's impression: Procedure(s): CT pelvis wo con [id number] Accession Number(s): [id number] Report Number: [id number] PROCEDURE INFORMATION: Exam: CT Pelvis Without Contrast; Skeletal Exam date and time: 10/16/2023 5:34 PM Age: 67 years old Clinical indication: Injury or trauma; Fall; Blunt trauma (contusions or hematomas); Left; Pelvic region; Prior surgery; Surgery date: 6+ months; Surgery type: Colostomy; Additional info: Traumatic pelvic pain TECHNIQUE: Imaging protocol: Computed tomography of the pelvis without contrast. Exam focused on the skeleton. Radiation optimization: All CT scans at this facility use at least one of these dose optimization techniques: automated exposure control; mA and/or kV adjustment per patient size (includes targeted exams where dose is matched to clinical indication); or iterative reconstruction. COMPARISON: CR XR hip LT 2-3V wo/w pel* [id number] 10/16/2023 3:18 PM RADIATION DOSE METRICS: Total DLP (mGy-cm): 267.12 FINDINGS: Bones/joints: Comminuted fractures of the left superior and inferior pubic rami. Comminuted fracture of the left iliac coronal image 56 extending into the SI joint, no asymmetric SI joint widening. No diastasis of the pubic symphysis. No acetabular, femoral or right-sided fractures. Soft tissues: Nonspecific stranding around the urinary bladder example axial image 56. Lower abdominal ostomy noted. CT/CT pelvis wo con [id number] IMPRESSION: Comminuted fractures of the left superior and inferior pubic rami. Comminuted fracture of the left iliac bone extending into the SI joint without SI joint widening. Nonspecific induration around the urinary bladder likely related to pelvic trauma. Consider cystography to exclude low likelihood of bladder injury if there is further clinical concern. Dictated By: Scott Zapata MD A&P Assessment and plan (1) Closed pelvic fracture: (2) Injury of right rotator cuff: (3) Rotator cuff arthropathy of left shoulder: (4) Fall: Plan Plan: -Hospitalist on board for medical management -Labs and imaging reviewed -Toe touch weightbearing to left leg. -Physical therapy--Toe touch weightbearing to left leg. -Pain control -VTE prophylaxis per hospitalist Coding Level of Care Code Acute Code for g Fwd Diagnoses Closed pelvic fracture S32.9XXA Injury of right rotator cuff S46.001A Rotator cuff arthropathy of left shoulder M12.812 Fall W19.XXXA Time Spent (min) 60 Documented by User: Leroy Still DO 10/19/23 07:28 Medications/Allergies Home Medications Medication Instructions Recorded Confirmed Last Taken Type buspirone 10 mg tablet 10 mg PO TID 04/25/20 10/16/23 10/16/23 History gabapentin 300 mg capsule 300 mg PO TID 04/25/20 10/16/23 10/16/23 History mesalamine 400 mg capsule (with 400 mg PO TID 04/25/20 10/16/2310/15/24 History delayed release tablets inside) omeprazole 40 mg capsule,delayed 40 mg PO DAILY 04/25/20 10/16/23 10/16/23 History release polyethylene glycol 3350 17 17 g PO DAILY 04/25/20 10/16/23 10/16/23 History gram/dose oral powder (Miralax) potassium chloride 20 mEq 20 meq PO BID 04/25/20 10/16/23 10/16/23 History tablet,extended release Juice Festiv 2 cap PO DAILY 10/16/23 10/16/23 10/16/23 History Juicefestiv 2 cap PO DAILY 10/16/23 10/16/23 10/16/23 History acetaminophen 325 mg tablet 650 mg PO Q4H PRN Pain 10/16/23 10/16/23 10/16/23 History amiodarone 200 mg tablet 400 mg PO DAILY 10/16/23 10/16/23 10/16/23 History clindamycin HCl 300 mg capsule 300 mg PO TID 10/16/23 10/16/23 10/16/23 History cyclobenzaprine 10 mg tablet 10 mg PO TID 10/16/23 10/16/23 10/16/23 History dextromethorphan-guaifenesin 10 10 - 20 ml PO Q4H PRN Cough 10/16/23 10/16/23 10/12/23 History mg-100 mg/5 mL oral liquid (Tussin DM) ferrous sulfate 325 mg (65 mg 325 mg PO BID 10/16/23 10/16/23 10/16/23 History iron) tablet fluoxetine 40 mg capsule 40 mg PO DAILY 10/16/23 10/16/23 10/16/23 History fluticasone 250 mcg-salmeterol 50 1 inh inhalation BID 10/16/23 10/16/23 10/16/23 History mcg/dose blistr powdr for inhalation (Wixela Inhub) furosemide 20 mg tablet 20 mg PO DAILY 10/16/23 10/16/23 10/16/23 History glucagon 3 mg/actuation nasal See Rx Instructions .Route .COMPLEX 10/16/23 10/16/23 Unknown History spray (Baqsimi) levalbuterol tartrate 45 1 - 2 puff inhalation Q4H PRN 10/16/23 10/16/23 Unknown History mcg/actuation aerosol inhaler Shortness Of Breath (Xopenex HFA) levothyroxine 50 mcg tablet 50 mcg PO DAILY 10/16/23 10/16/23 10/16/23 History mesalamine 4 gram/60 mL enema 4 g CA BEDTIME 10/16/23 10/16/23 10/15/23 History mirtazapine 15 mg tablet 15 - 30 mg PO BEDTIME 10/16/23 10/16/23 10/15/23 History multivitamin 1 tab PO QAM 10/16/23 10/16/23 10/16/23 History Allergies Allergy/AdvReac Type Severity Reaction Status Date / Time Penicillins Allergy Intermediate ALGY-Rash Verified 06/13/20 12:56 PFSH Acute 2 PFSH: Medical History (Updated 10/19/23 @ 07:25 by Leroy Still DO) COPD (chronic obstructive pulmonary disease) Atrial fibrillation Coronary artery disease Thyroid disease HTN (hypertension) Anemia Colostomy in place Depression Type 2 diabetes mellitus without complication Ulcerative colitis Osteoporosis Sarcoidosis Surgical History Hx of hand surgery Hx of appendectomy Hx of hysterectomy Social History Smoking and tobacco/nicotine status: never used tobacco/nicotine Alcohol intake: never Substance/Drug Use: never Lives independently: Yes Physical Exam 2 Urinary Catheter Management: Gonzalez: Cath Placed During This Visit: yes Data 10/18/23 06:53 10/18/23 06:53 A&P Assessment and plan (1) Closed pelvic fracture: (2) Injury of right rotator cuff: (3) Rotator cuff arthropathy of left shoulder: (4) Fall: Plan Plan: -Hospitalist on board for medical management -Labs and imaging reviewed -Toe touch weightbearing to left leg. -Physical therapy--Toe touch weightbearing to left leg. -May weight-bear as tolerated through the left upper extremity -Pain control -VTE prophylaxis per hospitalist Attending attestation/addendum: Patient was seen and examined in addition to PA-C. Agree with PAs assessment and plan. Pertaining to patient's pelvic fractures patient appears to have a stable pelvic ring with congruent SI joints at this point in time no sacral involvement on CT scan. Will start her with toe-touch weightbearing to the left lower extremity and work with therapy. Recommend DVT prophylaxis pain control Citracal vitamin D for bone health and healing. Pertaining to her left shoulder I did review her CT scan which had an anterior subluxation as well as superior migration consistent with likely rotator cuff pathology she said her shoulder at baseline feels like it pops in and out and just notices worse pain since her injury. On my examination of the left shoulder this is superiorly migrated as well as anteriorly and on examination unable to take my thumb and actively reducing get a palpable clunk and then when she rests her shoulder back down the shoulder subluxes out. This appears to be at her baseline due to rotator cuff arthropathy I did bring in x-ray and had the x-ray tech take x-rays with it out of the joint as well as with it in the joint which I am able to actively get it in the joint but it unfortunately was continually sublux out this will likely be an ongoing problem that we will have to discuss other treatment options once the pelvis is healed. Ultimately she can use a sling for comfort otherwise for the shoulder diagnosis is left shoulder rotator cuff arthropathy but is okay to weight-bear as tolerated to the left upper extremity. Pertaining to her pelvic fractures tender over the pubic rami's in the left side as well as posterior SI joint. She is neurovascular intact distally. She is able to wiggle toes plantarflex and dorsiflex ankle. Plan will be for nonoperative treatment of pelvic fracture work with therapy Citracal vitamin D pain control DVT prophylaxis, sling for comfort but can weight-bear as tolerated to the left upper extremity. Orthopedic surgery team will sign off patient at this time and follow peripherally if there is any questions pertaining to patient's care for her to contact orthopedics on-call. Otherwise patient can follow-up with us in the office in 2 weeks. All questions answered. Coding Level of Care Code Acute Code for [facility] [place] Fwd Diagnoses Closed pelvic fracture S32.9XXA Injury of right rotator cuff S46.001A Rotator cuff arthropathy of left shoulder M12.812 Fall W19.XXXA Time Spent (min) 60
--- NOTE | 2023-10-17 14:52 | P.PN_ITS ---
Subjective 2 Subjective: Seen this morning. She is somewhat of a poor historian. Denies being in pain at this time. Sodium 128, magnesium 1.4, chloride 94, osmolality 266, iron studies reviewed saturation 6.4, iron 11, ferritin 234. Vitals/I&O/Wt Last Vital Signs Temp 98.1 F 10/17/23 11:30 Pulse 85 10/17/23 14:00 Resp 18 10/17/23 11:30 BP 95/48 10/17/23 11:30 Pulse Ox 90 10/17/23 11:30 O2 Del Method Nasal Cannula 10/17/23 10:00 O2 Flow Rate 3 10/17/23 10:07 10/16/23 10/17/23 10/17/23 22:59 06:59 14:59 Intake Total 1350 / 1350 50 / 1400 410 / 410 Output Total 1500 / 1500 Balance 1350 / 1350 -1450 / -100 410 / 410 Weight last 48 hrs Weight 59.92 kg Weight 56.79 kg Weight 55.338 kg Physical Exam 2 Narrative: General exam demonstrates white female, able to answer some questions and does have occasional confusion. HEENT: Cataract lens surgery is noted. EOMI Cardiovascular regular rate and rhythm, no murmur Lungs clear no wheezing or crackles Abdomen is soft. Positive bowel sounds. Ostomy is noted Extremities no cyanosis clubbing. Trace edema is present bilaterally. Left shoulder may be anterior dislocated. She was seen by Dr. Still who was able to reduce the shoulder. Distal pulses intact. Pain with movement of the left leg. Pelvic fracture present: Movement limited secondary to pain. Skin no rash Neuro no obvious focal deficits Urinary Catheter Management: Gonzalez: Cath Placed During This Visit: yes Reason for Continuing Indwelling Catheter: Other Urinary Catheter Date of Insertion: 10/16/23 Urinary Catheter Time of Insertion: 23:00 Data 10/17/23 04:52 10/17/23 04:52 Micro: Microbiology 10/17/23 05:02 Blood Culture - Preliminary Blood SPECIMEN COLLECTED 10/17/23 04:52 Blood Culture - Preliminary Blood SPECIMEN COLLECTED A&P Assessment and plan (1) Closed pelvic fracture: Patient presents with a mechanical fall with a closed pelvic fracture PT and OT consult Ortho consult Pain control with hydrocodone, morphine for breakthrough pain, Tylenol Place Gonzalez I suspect she can be up as tolerated but will allow Ortho to see her to determine this prior to PT getting her out. Bedrest for now. (2) Dislocation of left shoulder joint: See above (3) Fall: No history of syncope. Go ahead and place on telemetry. Fall precautions. (4) Acute CHF: I am concerned she may have some CHF. She has a reticular pattern on her x-ray. Her sodium is low. This could also be explained by her history of sarcoid. Check echocardiogram. Lasix 40 mg IV x 1. Reassess in the morning. She is requiring a little bit of oxygen. This may be secondary to the narcotic she received, or mild acute CHF, unknown type (5) Urinary tract infection: Patient has significant urinary tract infection. She received meropenem in the emergency department. As she is in a nursing facility setting, and likely at high risk for ESBL we will continue this currently. (6) Hyponatremia: See notations under acute CHF (7) Gum abscess: Patient with a gum abscess right upper gum. Meropenem should cover this. Will need to eventually see dentist as an outpatient. (8) Anemia: Patient with anemia that appears chronic. This may be anemia of chronic disease. Will go ahead and do iron studies, B12, folate Plan Other medical problems as outlined in her past medical history Allow natural per nursing facility records Heparin for DVT prophylaxis Protonix for GI prophylaxis Today's plan 10/16 ? Echo is pending ? Lasix 40 IV x 1 given last night ? Ordered magnesium 4 g?today ? Check urine sodium, serum, urine osmolality ? Will have to repeat BMP - Appreciate recommendations from orthopedic surgery. - Patient has a closed pelvic fracture. Rehab facility recommended at this point. Nonsurgical management. ? Await urine culture ? Possible gum abscess right upper gum. Patient on meropenem. Will need dentist appointment at follow-up outpatient. ? Iron studies reviewed. Patient is iron deficient. ? Placed on ferritin 325 twice daily. Will consider IV Venofer x 1 in hospital. ? Attestations 2 Medical Necessity Statement*: Greater than 2 midnight stay for management of hyponatremia, pelvic fracture, hypomagnesemia Diagnoses Closed pelvic fracture S32.9XXA Dislocation of left shoulder joint S43.005A Fall W19.XXXA Acute CHF I50.9 Urinary tract infection N39.0 Hyponatremia E87.1 Gum abscess K05.219 Anemia D64.9
[2023-10-17] MEDS: magnesium sulfate premix 4 GM/100 ML PREMIX IV (15:44)
[2023-10-17 16:04] LABS: Urine Random Sodium 32 mmol/L
--- NOTE | 2023-10-17 18:04 | XRR_ITS ---
PROCEDURE INFORMATION: Exam: XR Left Shoulder Exam date and time: 10/17/2023 6:15 PM Age: 67 years old Clinical indication: Injury or trauma; Patient HX: Lt shoulder pain post fall; Mobile joint TECHNIQUE: Imaging protocol: Radiologic exam of the left shoulder. Views: 2 or more views. COMPARISON: CT shoulder LT wo con* [id number] 10/16/2023 7:16 PM FINDINGS: Bones/joints: Small bony density along the inferior aspect of the left glenoid which may represent a glenoid fracture. This is seen to much better advantage on the recent left shoulder CT dated 10/16/2023. Persistent anteriorly subluxed and cephalad translation of the left humeral head. Lungs: Increased interstitial markings throughout the visualized lungs are nonspecific but can be seen the setting of bronchitis, pulmonary vascular congestion, viral infection and small-vessel airways disease. Soft tissues: Normal. XR/XR shoulder LT min 2V* [id number] IMPRESSION: 1. Persistent anteriorly subluxed and cephalad translation of the left humeral head. 2. Increased interstitial markings throughout the visualized lungs are nonspecific but can be seen the setting of bronchitis, pulmonary vascular congestion, viral infection and small-vessel airways disease. 3. Small bony density along the inferior aspect of the left glenoid which may represent a glenoid fracture. This is seen to much better advantage on the recent left shoulder CT dated 10/16/2023.
[2023-10-17 18:41] LABS: Anion Gap 14.8 (5-19); Blood Urea Nitrogen 15 mg/dL (8-23); Calcium 7.8 mg/dL (8.5-10.5); Carbon Dioxide 23 mmol/L (22-29); Chloride 97 mmol/L (98-107); Glomerular Filtration Rate 99.1 mL/min (90-130); Glucose 121 mg/dL (65-115); Osmolality Calculated 274 mOsm/kg (285-295); Potassium 3.8 mmol/L (3.5-5.1); Sodium 131 mmol/L (136-145)
[2023-10-18] VITALS (14 sets, daily range): BP systolic 105–124; BP diastolic 55–77; PULSE 79–91; RESP 16–20; TEMP 36.4–37.2; O2SAT 90–98
[2023-10-18] MEDS: meropenem 1,000 MG in sodium chloride 0.9% (plus) 50 ML 100 MG IV ×3 (02:55→18:04)
[2023-10-18] MEDS: ipratropium-albuterol 3 mL Neb INHALATION ×4 (03:53→20:01)
[2023-10-18 07:29] LABS: Basophils # 0.1 10^3/uL (0.0-0.1); Basophils % 0.9 %; Eosinophils # 0.6 10^3/uL (0.0-0.8); Eosinophils % 4.3 %; Hematocrit 27.2 % (36-47); Lymphocytes # 1.6 10^3/uL (0.8-4.8); Lymphocytes % 11.3 %; Mean Corpuscular HGB Conc 30.9 g/dL (30-55); Mean Corpuscular Hemoglobin 27.8 pg (27-33); Mean Corpuscular Volume 90.1 fl (85-98); Mean Platelet Volume 8.6 fL (7.4-10.4); Monocytes # 1.3 10^3/uL (0.2-0.9); Monocytes % 9.4 %; Neutrophils # 10.37 10^3/uL (1.8-7.7); Neutrophils % 73.5 %; Nucleated Red Blood Cells % 0 %; Platelet Count 251 10^3/cmm (157-399); Red Blood Count 3.02 10^6/uL (3.85-5.65); Red Cell Distribution Width 15.3 % (12.1-15.1); White Blood Count 14.11 10^3/uL (3.29-11.43)
[2023-10-18 07:51] LABS: Blood Urea Nitrogen 12 mg/dL (8-23); Calcium 7.8 mg/dL (8.5-10.5); Carbon Dioxide 27 mmol/L (22-29); Chloride 95 mmol/L (98-107); Creatinine Clr Calc Pharmacy 61.9916; Glomerular Filtration Rate 122.3 mL/min (90-130); Glucose 92 mg/dL (65-115); Magnesium 1.9 mg/dL (1.7-2.3); Osmolality Calculated 265 mOsm/kg (285-295); Phosphorus 3.2 mg/dL (2.5-4.5); Sodium 128 mmol/L (136-145)
[2023-10-18 07:57] LABS: Anion Gap 10.1 (5-19); Potassium 4.1 mmol/L (3.5-5.1)
[2023-10-18] MEDS: budesonide 0.5 mg/2 mL Neb INHALATION ×2 (07:57→20:01)
[2023-10-18] MEDS: gabapentin 300 mg Capsule PO ×3 (09:25→20:59)
[2023-10-18] MEDS: pantoprazole DR 40 mg Tablet PO (09:25)
[2023-10-18] MEDS: fluoxetine 20 mg Capsule 40 MG PO (09:25)
[2023-10-18] MEDS: docusate sodium 100 mg Capsule PO ×2 (09:25→18:05)
[2023-10-18] MEDS: levothyroxine 50 mcg Tablet PO (09:25)
[2023-10-18] MEDS: BuSPIRONE 10 mg Tablet PO ×3 (09:25→20:59)
[2023-10-18] MEDS: amiodarone 200 mg Tablet 400 MG PO (09:26)
[2023-10-18] MEDS: heparin 5,000 unit/mL INJ 1 mL 5000 UNIT SUBCUT ×2 (09:27→20:59)
--- NOTE | 2023-10-18 13:29 | P.PN_ITS ---
Subjective 2 Subjective: gm neg rods in urine seen this am pt confused Vitals/I&O/Wt Last Vital Signs Temp 98.6 F 10/18/23 12:00 Pulse 86 10/18/23 12:00 Resp 16 10/18/23 12:00 BP 106/60 10/18/23 12:00 Pulse Ox 96 10/18/23 12:00 O2 Del Method Nasal Cannula 10/18/23 07:57 O2 Flow Rate 4 10/18/23 07:57 10/17/23 10/18/23 10/18/23 22:59 06:59 14:59 Intake Total 510 / 920 50 / 970 180 / 180 Output Total 850 / 850 Balance 510 / 920 -800 / 120 180 / 180 Weight last 48 hrs Weight 58.967 kg Weight 59.92 kg Weight 56.79 kg Weight 55.338 kg Physical Exam 2 Narrative: General exam demonstrates white female, able to answer some questions and does have occasional confusion. HEENT: Cataract lens surgery is noted. EOMI Cardiovascular regular rate and rhythm, no murmur Lungs clear no wheezing or crackles Abdomen is soft. Positive bowel sounds. Ostomy is noted Extremities no cyanosis clubbing. Trace edema is present bilaterally. Distal pulses intact. Pain with movement of the left leg. Pelvic fracture present: Movement limited secondary to pain. Skin no rash Neuro no obvious focal deficits Urinary Catheter Management: Gonzalez: Cath Placed During This Visit: yes Reason for Continuing Indwelling Catheter: Other Urinary Catheter Date of Insertion: 10/16/23 Urinary Catheter Time of Insertion: 23:00 Data 10/18/23 06:53 10/18/23 06:53 Micro: Microbiology 10/16/23 17:50 Urine Culture - Preliminary Urine,Clean Catch Gram Negative Rods 10/17/23 05:02 Blood Culture - Preliminary Blood NEGATIVE TO DATE 10/17/23 04:52 Blood Culture - Preliminary Blood NEGATIVE TO DATE A&P Assessment and plan (1) Closed pelvic fracture: Patient presents with a mechanical fall with a closed pelvic fracture PT and OT consult Ortho consult Pain control with hydrocodone, morphine for breakthrough pain, Tylenol Place Gonzalez I suspect she can be up as tolerated but will allow Ortho to see her to determine this prior to PT getting her out. Bedrest for now. (2) Dislocation of left shoulder joint: See above (3) Fall: No history of syncope. Go ahead and place on telemetry. Fall precautions. (4) Acute CHF: I am concerned she may have some CHF. She has a reticular pattern on her x-ray. Her sodium is low. This could also be explained by her history of sarcoid. Check echocardiogram. Lasix 40 mg IV x 1. Reassess in the morning. She is requiring a little bit of oxygen. This may be secondary to the narcotic she received, or mild acute CHF, unknown type (5) Urinary tract infection: Patient has significant urinary tract infection. She received meropenem in the emergency department. As she is in a nursing facility setting, and likely at high risk for ESBL we will continue this currently. (6) Hyponatremia: See notations under acute CHF (7) Gum abscess: Patient with a gum abscess right upper gum. Meropenem should cover this. Will need to eventually see dentist as an outpatient. (8) Anemia: Patient with anemia that appears chronic. This may be anemia of chronic disease. Will go ahead and do iron studies, B12, folate Plan Other medical problems as outlined in her past medical history Allow natural per nursing facility records Heparin for DVT prophylaxis Protonix for GI prophylaxis Today's plan 10/16 ? Echo is pending ? Lasix 40 IV x 1 given last night ? Ordered magnesium 4 g?today ? Check urine sodium, serum, urine osmolality ? Will have to repeat BMP - Appreciate recommendations from orthopedic surgery. - Patient has a closed pelvic fracture. Rehab facility recommended at this point. Nonsurgical management. ? Await urine culture ? Possible gum abscess right upper gum. Patient on meropenem. Will need dentist appointment at follow-up outpatient. ? Iron studies reviewed. Patient is iron deficient. ? Placed on ferritin 325 twice daily. Will consider IV Venofer x 1 in hospital. ?UTI: continue meropenem, it will cover UTI well . Attestations 2 Medical Necessity Statement*: Greater than 2 midnight stay for management of hyponatremia, pelvic fracture, hypomagnesemia Diagnoses Closed pelvic fracture S32.9XXA Dislocation of left shoulder joint S43.005A Fall W19.XXXA Acute CHF I50.9 Urinary tract infection N39.0 Hyponatremia E87.1 Gum abscess K05.219 Anemia D64.9
--- NOTE | 2023-10-18 14:20 | PC.NURSE ---
Notified Dr. Metcalf of patient having a sling but throws at the end of the bed. Patient will not keep the sling on.
[2023-10-18] MEDS: HYDROcodone-acetaminophen 5-325 mg Tablet 1 TAB PO ×2 (16:52→20:59)
[2023-10-19] VITALS (10 sets, daily range): BP systolic 97–136; BP diastolic 51–74; PULSE 76–86; RESP 16–18; TEMP 36.4–36.9; O2SAT 94–100
[2023-10-19] MEDS: meropenem 1,000 MG in sodium chloride 0.9% (plus) 50 ML 100 MG IV ×2 (02:27→09:37)
[2023-10-19] MEDS: fluoxetine 20 mg Capsule 40 MG PO (08:18)
[2023-10-19] MEDS: gabapentin 300 mg Capsule PO ×2 (08:18→15:09)
[2023-10-19] MEDS: amiodarone 200 mg Tablet 400 MG PO (08:18)
[2023-10-19] MEDS: pantoprazole DR 40 mg Tablet PO (08:18)
[2023-10-19] MEDS: BuSPIRONE 10 mg Tablet PO ×2 (08:19→15:09)
[2023-10-19] MEDS: docusate sodium 100 mg Capsule PO (08:19)
[2023-10-19] MEDS: levothyroxine 50 mcg Tablet PO (08:19)
[2023-10-19] MEDS: HYDROcodone-acetaminophen 5-325 mg Tablet 1 TAB PO ×2 (08:19→13:12)
[2023-10-19] MEDS: budesonide 0.5 mg/2 mL Neb INHALATION (09:15)
[2023-10-19] MEDS: ipratropium-albuterol 3 mL Neb INHALATION ×2 (09:15→14:42)
--- NOTE | 2023-10-19 09:27 | PC.CHAP ---
Pastoral Care Encounter/Spiritual Assessment Type of Contact [] Declined theater set production designer visit [] Patient/Family/Request visit [] Outpatient visit [] Follow-up visit [] Physician referral [] Code/Alert [x] Routine visit [] Staff referral [] Actively dying [] Patient sleeping [] Family support [] [] Out of room [] Palliative care [] [x] Receiving care in room [] Pre-surgical visit [] Trauma [] Long length of stay [] ICU visit [] Other: Relational/Emotional Strength [] Patient feels connected with others/family/visitors/staff [] Distress [] Loneliness/isolation [] Abandonment Spirituality of Patient [] Person of Melanie [] Attends Scientologist of their Melanie [] Believes in Prayer [] Reads Bible or Quaker materials [] There are Spiritual issues to be addressed Purchase Analyst Interventions [x] Prayer [] Active listening [] Non-anxious presence [] Spiritual/emotional support [] Crisis/trauma care [] Spiritual counseling [] Bereavement support [] Provided bereavement packet [] Provided Bible/devotional materials [] Provided toy/stuffed animal, coloring book to patient or family member [] Provided Communion [] Anointing/[place] [] Salvation [] Completed spiritual assessment [] Other: Impact on Illness or Injury [] Angry [] Fearful [] Anxious [] Often cries [] Exhaustion [] Unable to work [] Unable to attend gnosticist [] Unable to walk/stand [] Unable to read [] Unable to drive [] Unable to eat/drink [] Unable to sleep [] Unable to be with family [] Patient intubated [] Other: Summary Time spent with patient
[2023-10-19 09:29] LABS: Blood Urea Nitrogen 11 mg/dL (8-23); Calcium 8.3 mg/dL (8.5-10.5); Carbon Dioxide 24 mmol/L (22-29); Chloride 95 mmol/L (98-107); Creatinine Clr Calc Pharmacy 63.0134; Glomerular Filtration Rate 158.3 mL/min (90-130); Glucose 117 mg/dL (65-115); Magnesium 1.5 mg/dL (1.7-2.3); Osmolality Calculated 266 mOsm/kg (285-295); Sodium 128 mmol/L (136-145)
[2023-10-19 09:49] LABS: Basophils # 0.1 10^3/uL (0.0-0.1); Basophils % 0.8 %; Eosinophils # 0.4 10^3/uL (0.0-0.8); Eosinophils % 3.4 %; Hematocrit 25.1 % (36-47); Lymphocytes # 1.1 10^3/uL (0.8-4.8); Lymphocytes % 9.8 %; Mean Corpuscular HGB Conc 32.7 g/dL (30-55); Mean Corpuscular Hemoglobin 28.2 pg (27-33); Mean Corpuscular Volume 86.3 fl (85-98); Mean Platelet Volume 8.6 fL (7.4-10.4); Monocytes % 8.8 %; Neutrophils # 8.68 10^3/uL (1.8-7.7); Neutrophils % 76.7 %; Nucleated Red Blood Cells # 0.2 /100WBC; Platelet Count 220 10^3/cmm (157-399); Red Blood Count 2.91 10^6/uL (3.85-5.65); White Blood Count 11.33 10^3/uL (3.29-11.43)
[2023-10-19 11:21] LABS: SARS Covid-2 Antigen negative (Negative)
--- NOTE | 2023-10-19 11:41 | P.DS_ITS ---
Discharge Providers Date of Admission: 10/16/23 20:04 Date of Discharge: October 19, 2023 Attending Provider at Admission: Virgilio Pierre MD Attending Provider at Discharge: Joyce Metcalf MD Primary Care Provider: Tai Cooper MD Diagnoses at Discharge Discharge Diagnosis (1) Closed pelvic fracture: Status: Acute (2) Injury of right rotator cuff: Status: Acute (3) Rotator cuff arthropathy of left shoulder: Status: Acute (4) Fall: Status: Acute Reason for Visit Reason for Visit: PELVIC FRACTURE Hospital Course Hospital Course Patient was admitted after a mechanical fall causing a closed pelvic fracture. Nonsurgical management was recommended. Possibility of acute CHF Lasix x 1 was given however thereafter did not require any more Lasix. Also diagnosed with UTI during hospital stay. Since she was from a nursing facility she was placed on meropenem initially however urine culture was sensitive to Levaquin, Augmentin. She was sent home on Levaquin since she was allergic to penicillin. She did have a possible gum abscess in the right upper gum. She will need to see a dentist as an outpatient. On day of discharge patient doing well and will be discharged to [facility]. Physical Exam Narrative: General exam demonstrates white female, HEENT: Cataract lens surgery is noted. EOMI Cardiovascular regular rate and rhythm, no murmur Lungs clear no wheezing or crackles Abdomen is soft. Positive bowel sounds. Ostomy is noted Extremities no cyanosis clubbing. Trace edema is present bilaterally. Distal pulses intact. Pain with movement of the left leg. Pelvic fracture present: Movement limited secondary to pain. Skin no rash Neuro no obvious focal deficits Urinary Catheter Management: Gonzalez: Cath Placed During This Visit: yes Reason for Continuing Indwelling Catheter: Required Immobilization for Trauma or Surgery or Anesthesia Urinary Catheter Date of Insertion: 10/16/23 Urinary Catheter Time of Insertion: 23:00 Discharge Data Studies Completed and Pending Completed Studies During Hospitalization Category Date Time Status CT head wo con* [id number] Stat Cat Scan 10/16/23 19:[address] pelvis wo con [id number] Stat Cat Scan 10/16/23 16:[address] shoulder LT wo con* [id number] Stat Cat Scan 10/16/23 19:10 Completed XR chest 1V portable [id number] Stat Exams 10/16/23 19:24 Completed XR hip LT 2-3V wo/w pel* [id number] Stat Exams 10/16/23 14:43 Completed XR shoulder LT min 2V* [id number] Routine Exams 10/17/23 18:04 Completed XR shoulder LT min 2V* [id number] Stat Exams 10/16/23 15:29 Completed CV. echo complete* [id number] Routine Ultrasound 10/17/23 06:00 Completed Pending at discharge Category Date Time Status Blood Culture Stat Lab 10/16/23 19:25 Results Osmolality Serum Stat Lab 10/17/23 18:10 Received Osmolality Urine Stat Lab 10/17/23 15:40 Received Urine Culture Stat Lab 10/16/23 17:50 Results Radiology Impressions Hip/Pelvis X-Ray 10/16/23 14:43 IMPRESSION: Acute fracture of the superior and inferior pubic rami. Acute fracture of the hip not identified. Pelvis CT 10/16/23 16:39 IMPRESSION: Comminuted fractures of the left superior and inferior pubic rami. Comminuted fracture of the left iliac bone extending into the SI joint without SI joint widening. Nonspecific induration around the urinary bladder likely related to pelvic trauma. Consider cystography to exclude low likelihood of bladder injury if there is further clinical concern. Shoulder CT 10/16/23 19:10 IMPRESSION: 1. Anteriorly subluxed/nearly-dislocated humeral head, of indeterminate acuity. Cephalad translation of the humeral head 2. The shoulder malalignment is likely contributed to by extensive rotator cuff tear. Significant atrophy and fatty replacement of the rotator cuff muscles. Glenohumeral effusion extending to the subacromial subdeltoid bursa. 3. Severe wedge compression fracture of T5, T6 and T7 vertebra , diastatic burst appearance of T6 vertebra, status post vertebroplasty. Correlation with prior imaging would be helpful to assess for stability . 5. Scattered small left lung nodules. Follow-up CT in 1 year recommended according to the Fleischner guidelines. Head CT 10/16/23 19:21 IMPRESSION: No acute intracranial abnormality. Chest X-Ray 10/16/23 19:24 IMPRESSION: Reticular opacities throughout both lungs could reflect pneumonitis or interstitial lung disease. Distribution is atypical for edema but noncardiogenic pulmonary edema is in the differential. Shoulder X-Ray 10/17/23 18:04 IMPRESSION: 1. Persistent anteriorly subluxed and cephalad translation of the left humeral head. 2. Increased interstitial markings throughout the visualized lungs are nonspecific but can be seen the setting of bronchitis, pulmonary vascular congestion, viral infection and small-vessel airways disease. 3. Small bony density along the inferior aspect of the left glenoid which may represent a glenoid fracture. This is seen to much better advantage on the recent left shoulder CT dated 10/16/2023. Laboratory Results WBC 11.33 10^3/uL (3.29-11.43) 10/19/23 08:44 RBC 2.91 10^6/uL (3.85-5.65) L 10/19/23 08:44 Hgb 8.20 g/dL (11.27-16.99) L 10/19/23 08:44 Hct 25.1 % (36-47) L 10/19/23 08:44 MCV 86.3 fl (85-98) 10/19/23 08:44 MCH 28.2 pg (27-33) 10/19/23 08:44 MCHC 32.7 g/dL (30-55) D 10/19/23 08:44 RDW 15.0 % (12.1-15.1) 10/19/23 08:44 Plt Count 220 10^3/cmm (157-399) 10/19/23 08:44 MPV 8.6 fL (7.4-10.4) 10/19/23 08:44 Neut % (Auto) 76.7 % 10/19/23 08:44 Lymph % (Auto) 9.8 % 10/19/23 08:44 Izard % (Auto) 8.8 % 10/19/23 08:44 Eos % (Auto) 3.4 % 10/19/23 08:44 Baso % (Auto) 0.8 % 10/19/23 08:44 Neut # (Auto) 8.68 10^3/uL (1.8-7.7) H 10/19/23 08:44 Lymph # (Auto) 1.1 10^3/uL (0.8-4.8) 10/19/23 08:44 Izard # (Auto) 1.0 10^3/uL (0.2-0.9) H 10/19/23 08:44 Eos # (Auto) 0.4 10^3/uL (0.0-0.8) 10/19/23 08:44 Baso # (Auto) 0.1 10^3/uL (0.0-0.1) 10/19/23 08:44 Nucleated RBC % (auto) 2.0 % 10/19/23 08:44 Nucleated RBCs # 0.2 /100WBC 10/19/23 08:44 Sodium 128 mmol/L (136-145) L 10/19/23 08:44 Potassium 4.0 mmol/L (3.5-5.1) 10/19/23 08:44 Chloride 95 mmol/L (98-107) L 10/19/23 08:44 Carbon Dioxide 24 mmol/L (22-29) 10/19/23 08:44 Anion Gap 13.0 (5-19) 10/19/23 08:44 BUN 11 mg/dL (8-23) 10/19/23 08:44 Creatinine 0.4 mg/dL (0.5-0.9) L 10/19/23 08:44 GFR Calculation 158.3 mL/min (90-130) H 10/19/23 08:44 Glucose 117 mg/dL (65-115) H 10/19/23 08:44 Calculated Osmolality 266 mOsm/kg (285-295) L 10/19/23 08:44 Lactic Acid 1.2 mmol/L (0.5-2.2) 10/16/23 18:17 Calcium 8.3 mg/dL (8.5-10.5) L 10/19/23 08:44 Phosphorus 3.2 mg/dL (2.5-4.5) 10/18/23 06:53 Magnesium 1.5 mg/dL (1.7-2.3) L 10/19/23 08:44 Iron 11 ug/dL (37-145) L 10/16/23 21:02 TIBC 171 mcg/dl 10/16/23 21:02 % Saturation 6.4 % (20-50) L 10/16/23 21:02 Unsat Iron Binding 160 ug/dL (112-347) 10/16/23 21:02 Ferritin 234 ng/mL (15-150) H 10/16/23 21:02 Total Bilirubin 0.3 mg/dL (0.15-1.2) 10/17/23 04:52 AST 33 U/L (0-32) H 10/17/23 04:52 ALT 14 U/L (0-33) 10/17/23 04:52 Alkaline Phosphatase 58 U/L (35-105) 10/17/23 04:52 Total Protein 6.7 g/dL (6.6-8.7) 10/17/23 04:52 Albumin 2.7 g/dL (3.5-5.2) L 10/17/23 04:52 Globulin 4.0 g/dL (1.3-4.6) 10/17/23 04:52 Vitamin B12 1217 pg/mL (232-1245) 10/16/23 21:02 Folate > 20.0 ng/mL (4.8-37.3) 10/16/23 18:17 TSH 2.99 uIU/mL (0.27-4.20) 10/16/23 21:02 Urine Color Yellow (Yellow) 10/16/23 17:50 Urine Appearance Cloudy (CLEAR) A 10/16/23 17:50 Urine pH 9 (5-7) H 10/16/23 17:50 Ur Specific Dixon 1.010 (1.005-1.030) 10/16/23 17:50 Urine Protein Neg (Negative) 10/16/23 17:50 Urine Glucose (UA) Norm (Normal) 10/16/23 17:50 Urine Ketones Negative (Negative) 10/16/23 17:50 Urine Blood 2+ (Negative) H 10/16/23 17:50 Urine Nitrate Negative (Negative) 10/16/23 17:50 Urine Bilirubin Neg (Negative) 10/16/23 17:50 Prot Sulfosalicylic Acd Positive (Negative) 10/16/23 17:50 Urine Urobilinogen Neg mg/dL (Negative) 10/16/23 17:50 Ur Leukocyte Esterase 2+ (Negative) H 10/16/23 17:50 Urine RBC 0-4 /hpf (0-2) H 10/16/23 17:50 Urine WBC Too numerous to cnt /hpf (0-5) H 10/16/23 17:50 Ur Squamous Epith Cells 0-4 /hpf (0-5) H 10/16/23 17:50 Amorphous Sediment 1+ /hpf 10/16/23 17:50 Urine Bacteria 3+ /hpf (NONE) H 10/16/23 17:50 Urine Mucus Trace /hpf 10/16/23 17:50 Ur Random Sodium 32 mmol/L 10/17/23 15:40 SARS-CoV-2 Ag (Rapid) negative (Negative) 10/19/23 10:59 Vitals Last Vital Signs Temp 97.8 F 10/19/23 11:26 Pulse 85 10/19/23 11:26 Resp 18 10/19/23 11:26 BP 97/57 10/19/23 11:26 Pulse Ox 95 10/19/23 11:26 O2 Del Method Nasal Cannula 10/19/23 11:26 O2 Flow Rate 4 10/19/23 11:26 Discharge Plan Discharge Patient Disposition: Xfer [facility] Condition: Stable Prescriptions: New hydrocodone-acetaminophen 5-325 mg tablet 1 tab PO Q6H PRN (Reason: pain) 7 Days Qty: 28 0RF ondansetron 4 mg tablet,disintegrating 4 mg PO Q8H 3 Days Qty: 9 0RF Calcium 600 + D(3) 600 mg-10 mcg (400 unit) tablet 1 tab PO DAILY 30 Days Qty: 30 0RF aspirin 325 mg capsule 325 mg PO BID 35 Days Qty: 70 0RF levofloxacin 750 mg tablet 750 mg PO DAILY 5 Days Qty: 5 0RF Continued polyethylene glycol 3350 [Miralax] 17 gram/dose powder 17 g PO DAILY mesalamine 400 mg capsule (with del rel tablets) 400 mg PO TID omeprazole 40 mg capsule,delayed release(DR/EC) 40 mg PO DAILY buspirone 10 mg tablet 10 mg PO TID gabapentin 300 mg capsule 300 mg PO TID multivitamin Tablet 1 tab PO QAM fluoxetine 40 mg capsule 40 mg PO DAILY cyclobenzaprine 10 mg Tablet 10 mg PO TID mesalamine 4 gram/60 mL enema 4 g NM BEDTIME Wixela Inhub 250-50 mcg/dose blister with device 1 inh INHALATION BID acetaminophen 325 mg Tablet 650 mg PO Q4H PRN (Reason: Pain) amiodarone 200 mg Tablet 400 mg PO DAILY Tussin DM 10-100 mg/5 mL Liquid 10 - 20 ml PO Q4H PRN (Reason: Cough) levothyroxine 50 mcg Tablet 50 mcg PO DAILY ferrous sulfate 325 mg (65 mg iron) Tablet 325 mg PO BID furosemide 20 mg tablet 20 mg PO DAILY mirtazapine 15 mg tablet 15 - 30 mg PO BEDTIME Xopenex HFA 45 mcg/actuation Hfa Aerosol Inhaler 1 - 2 puff INHALATION Q4H PRN (Reason: Shortness Of Breath) Baqsimi 3 mg/actuation [address],Non-Aerosol See Rx Instructions .ROUTE .COMPLEX Rx Instructions: USE 1 SPRAY (3MG) INTRANASALY IF GLUCOSE UNDER 60 AND SYMPTOMATIC. INSERT TIP INTO NOSTRIL, PUSH PLUNGER FIRMLY ALL THE WAY IN. DOSE COMPLETE WHEN GREEN LINE ON PLUNGER DISAPPEARS. Held potassium chloride 20 mEq tablet extended release 20 meq PO BID Hold Instructions: see pcp Discontinued clindamycin HCl 300 mg Capsule 300 mg PO TID Juice Festiv 2 cap PO DAILY Rx Instructions: VEGGIES Juicefestiv 2 cap PO DAILY Rx Instructions: FRUIT Discharge Orders: Discharge Order (Routine); Ordered 10/19/23 Ordered By: Joyce Metcalf Other Ambulatory Orders: Basic Metabolic Panel (Routine) Timeframe: 3 Days Facility: [facility] - Location: Lab - Main Lab Ordered By: Joyce Metcalf Complete Blood Count w/Auto (Routine) Timeframe: 3 Days Location: Determined by Patient Ordered By: Joyce Metcalf Referrals: [facility] [Outside] Leroy Still DO [Physician] - 10/30/23 10:45 am () Tai Cooper MD [Primary Care Provider] - 1-3 days Discharge Activity: Limit activity as instructed, Use walker/crutches as instructed and As per PT/OT instructions Activity Restrictions/Additional Instructions: Orthopedic discharge instructions: Patient may weight-bear as tolerated to left upper extremity May use sling as needed Pain control?take pain medication as prescribed by hospitalist DVT prophylaxis as prescribed (blood thinner) to prevent blood clots Recommend supplement with Citracal vitamin D for bone health and healing Toe-touch weightbearing to left lower extremity Utilize walker or cane or crutches per therapy to maintain restrictions to the left lower extremity Ice as needed for pain and swelling Follow-up in the orthopedic office in 2 weeks Contact the office for any questions or concerns Discharge Attestations Time Spent in Discharge Care*: greater than 30 min Quality Metrics Clinical Quality Measures [ No reported AMI, CVA or VTE this stay] Coding Level of Care Code Acute Code for g Fwd Diagnoses Closed pelvic fracture S32.9XXA Injury of right rotator cuff S46.001A Rotator cuff arthropathy of left shoulder M12.812 Fall W19.XXXA
[2023-10-19] MEDS: FUROsemide 10 mg/mL SDV 2mL 20 MG IVP (11:59)
--- NOTE | 2023-10-19 12:20 | PC.NURSE ---
Patient refused to allow this nurse to remove joshi catheter. This nurse notified Dr. Metcalf. Dr. Metcalf allowed for patient to keep the joshi catheter in place at this time.
--- NOTE | 2023-10-19 12:23 | P.PN_ITS ---
Vitals/I&O/Wt Last Vital Signs Temp 97.8 F 10/19/23 11:26 Pulse 85 10/19/23 11:26 Resp 18 10/19/23 11:26 BP 97/57 10/19/23 11:26 Pulse Ox 95 10/19/23 11:26 O2 Del Method Nasal Cannula 10/19/23 11:26 O2 Flow Rate 4 10/19/23 11:26 10/18/23 10/19/23 10/19/23 22:59 06:59 14:59 Intake Total 650 / 880 150 / 1030 290 / 290 Output Total 400 / 550 Balance 650 / 730 -250 / 480 290 / 290 Weight last 48 hrs Weight 61.405 kg Weight 58.967 kg Physical Exam 2 Urinary Catheter Management: Gonzalez: Cath Placed During This Visit: yes Reason for Continuing Indwelling Catheter: Required Immobilization for Trauma or Surgery or Anesthesia Urinary Catheter Date of Insertion: 10/16/23 Urinary Catheter Time of Insertion: 23:00 Data 10/19/23 08:44 10/19/23 08:44 Micro: Microbiology 10/16/23 17:50 Urine Culture - Preliminary Urine,Clean Catch Gram Negative Rods Coding Level of Care Code Acute Code for Chg Fwd
--- NOTE | 2023-10-19 12:59 | PC.SOCIAL ---
IMM Update pg 2 of IMM updated and reviewed w/ patient. Copy provided and copy dated, initialed and placed in chart.
[2023-10-20 14:14] LABS: Osmolality Urine 505 mOsm/kg (50-1200)
[2023-10-20 14:14] LABS: Osmolality Serum 276 mOsm/kg (278-305)
== END 2023-10-19 16:51 | disposition skilled nursing facility (03) | DRG 536 ==
LOC: ER 20:28 → MEDSURG 20:30
PROVIDERS: Admitting Provider Internal Medicine; Emergency Provider Emergency Medicine; PCP Family Medicine; Visit Provider Internal Medicine
DX: S32.592A Other specified fracture of left pubis, initial encounter for closed fracture (principal); N39.0 Urinary tract infection, site not specified; E87.1 Hypo-osmolality and hyponatremia; S32.302A Unspecified fracture of left ilium, initial encounter for closed fracture; W01.0XXA Fall on same level from slipping, tripping and stumbling without subsequent striking against object, initial encounter; I50.9 Heart failure, unspecified; E83.42 Hypomagnesemia; M25.512 Pain in left shoulder; G89.29 Other chronic pain; K05.219 Aggressive periodontitis, localized, unspecified severity; E03.9 Hypothyroidism, unspecified; J44.9 Chronic obstructive pulmonary disease, unspecified
CPT/HCPCS: 36415; 51702; 70450; 71045; 72192; 73030; 73200; 73502; 80048; 80053; 81001; 82607; 82728; 82746; 83540; 83550; 83605; 83735; 83930; 83935; 84100; 84300; 84443; 85025; 87040; 87077; 87086; 87186; 87426; 93306; 94640; 96365; 96367; 96372; 96375; 97110; 97162; 97165; 97530; 97535; 99285; A4565; J1644; J1940; J2020; J2185; J2270; J2405; J3475; J7030; J7626

== ENCOUNTER → 2023-12-01 07:40 | Outpatient (BNVA) | payer MEDICARE, OTHER, MEDICAID, SELFPAY | PROVIDERS: PCP Family Medicine; Visit Provider Student in an Organized Health Care Education/Training Program | DX: M12.812 Other specific arthropathies, not elsewhere classified, left shoulder (principal); S32.592A Other specified fracture of left pubis, initial encounter for closed fracture; S32.512A Fracture of superior rim of left pubis, initial encounter for closed fracture; S32.302A Unspecified fracture of left ilium, initial encounter for closed fracture; W19.XXXA Unspecified fall, initial encounter | CPT/HCPCS: 20610; 73030; 73503; 99204; J3301 ==

== ENCOUNTER → 2024-01-19 13:43 | Outpatient (BNVA) | payer MEDICARE, OTHER, SELFPAY | PROVIDERS: PCP Family Medicine; Visit Provider Student in an Organized Health Care Education/Training Program | DX: M12.812 Other specific arthropathies, not elsewhere classified, left shoulder (principal); M70.61 Trochanteric bursitis, right hip; S32.512D Fracture of superior rim of left pubis, subsequent encounter for fracture with routine healing; S32.592D Other specified fracture of left pubis, subsequent encounter for fracture with routine healing; S43.005D Unspecified dislocation of left shoulder joint, subsequent encounter; X58.XXXD Exposure to other specified factors, subsequent encounter | CPT/HCPCS: 20610; 73030; 73502; 99213; J3301; J3490 ==

== ENCOUNTER → 2024-05-06 10:15 | Outpatient (BNVA) | payer MEDICARE, OTHER, SELFPAY | PROVIDERS: PCP Family Medicine; Visit Provider Student in an Organized Health Care Education/Training Program | DX: M16.11 Unilateral primary osteoarthritis, right hip; M70.61 Trochanteric bursitis, right hip | CPT/HCPCS: 20610; 99213; J3301; J3490 ==

== ENCOUNTER → 2024-07-12 15:36 | Outpatient (BNVA) | payer MEDICARE, OTHER, SELFPAY | PROVIDERS: PCP Family Medicine; Visit Provider Student in an Organized Health Care Education/Training Program | DX: M12.812 Other specific arthropathies, not elsewhere classified, left shoulder (principal) | CPT/HCPCS: 20610; 73030; 99213; J3301 ==

== ENCOUNTER → 2024-08-30 15:28 | Outpatient (BNVA) | payer MEDICARE, OTHER, SELFPAY | PROVIDERS: PCP Family Medicine; Visit Provider Physician Assistant | DX: M70.61 Trochanteric bursitis, right hip (principal); M12.812 Other specific arthropathies, not elsewhere classified, left shoulder; S46.001A Unspecified injury of muscle(s) and tendon(s) of the rotator cuff of right shoulder, initial encounter; X58.XXXA Exposure to other specified factors, initial encounter | CPT/HCPCS: 20610; 73030; 99213; J3301; J3490; J9999 ==

== ENCOUNTER → 2024-09-12 13:03 | Outpatient (BNVA) | payer MEDICARE, OTHER, SELFPAY | PROVIDERS: PCP Family Medicine; Visit Provider Nurse Practitioner Family | DX: D48.5 Neoplasm of uncertain behavior of skin (principal); D69.2 Other nonthrombocytopenic purpura; Z08 Encounter for follow-up examination after completed treatment for malignant neoplasm; Z85.828 Personal history of other malignant neoplasm of skin; L57.0 Actinic keratosis | CPT/HCPCS: 11102; 17000; 99203 ==

== ENCOUNTER → 2024-10-11 12:53 | Outpatient (BNVA) | payer MEDICARE, OTHER, SELFPAY | PROVIDERS: PCP Family Medicine; Visit Provider Student in an Organized Health Care Education/Training Program | DX: M12.812 Other specific arthropathies, not elsewhere classified, left shoulder (principal) | CPT/HCPCS: 20610; 99213; J3301; J9999 ==

== ENCOUNTER → 2024-10-24 08:39 | Outpatient (BNVA) | payer MEDICARE, OTHER, SELFPAY | PROVIDERS: PCP Family Medicine; Visit Provider Dermatology | DX: D48.5 Neoplasm of uncertain behavior of skin (principal); C44.519 Basal cell carcinoma of skin of other part of trunk; D04.4 Carcinoma in situ of skin of scalp and neck | CPT/HCPCS: 11603; 12034; 17272; 99213 ==

== ENCOUNTER → 2024-11-22 11:25 | Outpatient (BNVA) | payer MEDICARE, OTHER, SELFPAY | PROVIDERS: PCP Family Medicine; Visit Provider Physician Assistant | DX: M70.62 Trochanteric bursitis, left hip (principal); M16.12 Unilateral primary osteoarthritis, left hip; M54.50 Low back pain, unspecified | CPT/HCPCS: 20610; 73523; 99213; J3301; J3490; J9999 ==

== ENCOUNTER → 2024-12-22 14:02 | Outpatient (BNVA) | payer MEDICARE, OTHER, SELFPAY | PROVIDERS: PCP Family Medicine; Visit Provider Orthopaedic Surgery | DX: M54.50 Low back pain, unspecified (principal); G89.29 Other chronic pain | CPT/HCPCS: 72100; 99203 ==

== ENCOUNTER 2024-12-26 15:48 | Outpatient (CLI) | payer MEDICARE, OTHER, SELFPAY ==
--- NOTE | 2024-12-26 16:00 | MR_ITS ---
WS: [id number] MRI LUMBAR SPINE NONCONTRAST HISTORY: lumbar spine pain COMPARISON: Radiograph 12/22/2024 TECHNIQUE: Sagittal and axial multisequence imaging is submitted. Reversal of the normal cervical lordosis. Reversal centered at C5. C3 anterolisthesis by 3 mm. Mild anterior wedging of C4, C5 and C6. Focal kyphosis thoracic spine centered at T5, T6 and T7. Kyphosis resulting in deformity and posterior displacement of the thoracic cord. Severe compression fractures, most significant at T6. Straightening and RIGHT curvature lumbar spine. Prior vertebroplasties at L3 and L4. No marrow edema or acute fracture. Disc spaces are mildly narrowed and desiccated. Conus terminates normally at L1-2 disc level. L1-L2: Mild asymmetric disc bulging to the RIGHT. Mild facet arthritis. No high- grade stenosis. L2-L3: With a LEFT foraminal disc protrusion. Mild facet and ligamentum flavum hypertrophy. Mild central, subarticular recess and RIGHT foraminal stenosis. L3-L4: Diffuse annular disc bulging with osteophytic ridging. Thecal sac is being deformed by the scoliosis. Moderate ligamentum flavum and facet arthropathy. Mild central, subarticular recess and moderate LEFT foraminal stenosis. There is disc osteophyte contact on the LEFT exiting L3 nerve root. Mild RIGHT foraminal stenosis. L4-L5: Diffuse annular disc bulging with a broad-based RIGHT foraminal disc protrusion. Ligamentum flavum and facet arthritis. Fluid in the facet joints. Very mild central and subarticular recess and bilateral foraminal stenosis. L5-S1: Annular disc bulge with a central disc protrusion. Additional small RIGHT foraminal disc protrusion. There is mild disc contact on the S1 nerve roots. More significant contact on the RIGHT exiting L5 nerve root. Mild LEFT foraminal stenosis. Paravertebral soft tissues are negative. There is significant psoas muscle atrophy. MR/MR lumbar spine wo con* [id number] IMPRESSION: 1. Severe focal kyphosis centered at T5, T6 and T7 with displacement of the co rd. 2. L5-S1: Small central disc protrusion and RIGHT foraminal disc protrusion. T here is mild disc contact on the S1 nerve roots. More significant disc contact on the RIGHT exiting L5 nerve root with moderate RIGHT foraminal stenosis. 3. L4-5: Broad-based RIGHT foraminal disc protrusion. Very mild central, subar ticular recess and bilateral foraminal stenosis. 4. L3-4: Disc deform the thecal sac secondary to scoliosis. Moderate LEFT fora omayra stenosis. Mild central, subarticular recess and RIGHT foraminal stenosis. 5. L2-3: Mild central, subarticular recess and RIGHT foraminal stenosis. 6. Multilevel facet joint arthropathy.
== END 2024-12-26 15:49 | disposition home or self-care (01) ==
LOC: RAD 15:48
PROVIDERS: PCP Family Medicine; Visit Provider Orthopaedic Surgery
DX: M51.27 Other intervertebral disc displacement, lumbosacral region (principal); M51.26 Other intervertebral disc displacement, lumbar region; M48.061 Spinal stenosis, lumbar region without neurogenic claudication; M48.07 Spinal stenosis, lumbosacral region; M41.9 Scoliosis, unspecified; M47.816 Spondylosis without myelopathy or radiculopathy, lumbar region
CPT/HCPCS: 72148

== ENCOUNTER → 2025-01-10 14:54 | Outpatient (BNVA) | payer MEDICARE, OTHER, SELFPAY | PROVIDERS: PCP Family Medicine; Visit Provider Orthopaedic Surgery | DX: M54.9 Dorsalgia, unspecified (principal); Z09 Encounter for follow-up examination after completed treatment for conditions other than malignant neoplasm; M48.061 Spinal stenosis, lumbar region without neurogenic claudication | CPT/HCPCS: 99214 ==

== ENCOUNTER → 2025-01-17 15:09 | Outpatient (BNVA) | payer MEDICARE, OTHER, SELFPAY | PROVIDERS: PCP Family Medicine; Referring Provider Orthopaedic Surgery; Visit Provider Nurse Practitioner Family | DX: M54.9 Dorsalgia, unspecified (principal); G89.29 Other chronic pain; M54.50 Low back pain, unspecified | CPT/HCPCS: 99214 ==

== ENCOUNTER → 2025-01-24 12:59 | Outpatient (BNVA) | payer MEDICARE, OTHER, SELFPAY | PROVIDERS: PCP Family Medicine; Visit Provider Student in an Organized Health Care Education/Training Program | DX: M12.812 Other specific arthropathies, not elsewhere classified, left shoulder (principal) | CPT/HCPCS: 20610; 99213; J3301; J9999 ==

== ENCOUNTER → 2025-02-14 11:30 | Outpatient (BNVA) | payer MEDICARE, OTHER, SELFPAY | PROVIDERS: PCP Family Medicine; Visit Provider Nurse Practitioner Family | DX: M79.18 Myalgia, other site (principal); M54.50 Low back pain, unspecified; G89.29 Other chronic pain | CPT/HCPCS: 20553; 99214; J1010; J3490 ==

== ENCOUNTER → 2025-05-03 13:20 | Outpatient (BNVA) | payer MEDICARE, OTHER, SELFPAY | PROVIDERS: PCP Family Medicine; Visit Provider Student in an Organized Health Care Education/Training Program | DX: M12.812 Other specific arthropathies, not elsewhere classified, left shoulder (principal); Z71.89 Other specified counseling | CPT/HCPCS: 20610; 99213; J3301; J9999 ==